=== PATIENT | male | born 1965 | race Caucasian/White ===

== ENCOUNTER 2020-05-22 10:21 | Inpatient (IN) ==
[2020-05-22] MEDS ORDERED: ONDANSETRON INJ 2 MG/ML 2 ML VIAL IV STA (10:46)
[2020-05-22] MEDS ORDERED: MoRPHine SULFATE 10 MG/ML CARP/VIAL IV STA (10:46)
[2020-05-22] MEDS ORDERED: KETOROLAC TROMETHAMINE 15 MG/ML VIAL IV ONE (10:46)
[2020-05-22] MEDS ORDERED: SODIUM CHLORIDE 0.9% 1000ML 2,000 ML IV ONE (10:46)
--- NOTE | 2020-05-22 10:49 | Emergency Department Note ---
Impression & Plan Hydronephrosis of right kidney, Renal colic on right side, Ureterolithiasis ED Provider Note NAME: PELON RUIZ AGE: 54 SEX: M : 1965 ARRIVES VIA: Walk-In INFORMANT: Patient ED PROVIDER(S): Derrick Benito DO CHIEF COMPLAINT: right flank pain HPI: Patient is a 54-year-old male who presents the ER for severe right flank pain. This started about 1/2-hour prior to arrival. Pain states his back and radiates through his flank. Pain is a 10 out of 10. Positions do not change the pain. He took some Advil with no significant improvement. He has a history of 1 previous kidney stone and this was about 10 years ago and this feels extremely similar. Denies any dysuria urgency or frequency prior to this occurring. No trauma. No weakness or numbness in his arms or legs. No fevers. No other exacerbating or remitting factors. ROS: See above HPI for pertinent positives & negatives. A total of 10 systems reviewed and were otherwise negative. PAST MEDICAL HISTORY:See Below PAST SURGICAL HISTORY:See Below FAMILY HISTORY:See Below SOCIAL HISTORY:See Below HOME MEDICATIONS:See Below ALLERGIES:See Below VITALS:See Below PHYSICAL EXAMINATION: GENERAL: Sitting up in bed, alert, significant distress rolling around the bed EYE EXAM: normal conjunctiva. OROPHARYNX: Mask in place NECK: supple, no nuchal rigidity, no adenopathy, non-tender LUNGS: Clear to auscultation. Normal chest wall mechanics HEART: no murmurs, S1 normal and S2 normal ABDOMEN: abdomen soft, non-tender, normo-active bowel sounds, no masses, no rebound or guarding. BACK: Back is symmetrical on inspection and there is no deformity, no midline tenderness, no CVA tenderness. SKIN: no rashes and no bruising UPPER EXTREMITIES: upper extremities are grossly normal. LOWER EXTREMITIES: No pitting edema. Flexion extension of the hips and ankles 4-5 bilaterally NEURO EXAM: Normal sensorium, cranial nerves II-XII grossly intact, normal speech, no gross weakness of arms, no gross weakness of legs. MEDICAL DECISION MAKING: Patient is a 54-year-old male who presents the ER for right flank pain. He notes is severe and sharp and stabbing. Feels like his previous kidney stone. IV was established blood work was obtained. Labs showed no significant leukocytosis or anemia. BMP with slightly elevated chloride at 109. Bilirubin LFTs are unremarkable. Lipase is normal. UA with small amount hematuria. Covid was negative. CT abdomen pelvis shows shows hydronephrosis with a 6 x 7 mm renal stone. He was given 3 separate doses of IV narcotics. He still continued to have fair amount of pain. He was given IV Toradol. He was updated bedside. Discussed with hospitalist for observation secondary to pain control hydronephrosis and renal colic. Triage Nursing notes reviewed. Limited review of prior medical records performed Vital Signs: reviewed and remarkable for HTN Differential diagnosis: Differential diagnoses includes but is not limited to gastritis, peptic ulcer disease, GERD, gallbladder disease, pancreatitis, small bowel obstruction, acute coronary syndrome, pericarditis, ischemic bowel, irritable bowel disease, irritable bowel syndrome, appendicitis, diverticulitis, malignancy, hernia, urinary tract infection, torsion, perforation, trauma, infectious. ER treatment provided: See below Diagnostics interpreted by me: ECG: none Cardiac Monitoring: An order was placed for continuous cardiac monitoring. The monitor shows a rate of 69 with sinus rhythm. Laboratory studies: As stated above and show below. Imaging studies: CT abdomen pelvis shows hydronephrosis with 6 x 7 mm renal stone. Consultation(s): Discussed with Dr. Miles Cary for further evaluation Procedures: none Critical Care: None Past Med/Surg History Medical History History of nephrolithiasis Surgical History History of left inguinal hernia repair Social History Smoking Status: Never smoker Hx Alcohol Use: Yes (1-2 Juan Pablo Avilez) Hx Substance Use: No Feels Safe at Home: Yes Allergies Allergies Allergy/AdvReac Type Severity Reaction Status Date / Time No Known Allergies Allergy Unverified 05/22/20 11:08 Home Meds Home Medications Medication Instructions Recorded Confirmed ibuprofen [Advil] 200 mg PO Q6H PRN 05/22/20 05/22/20 Results & Data (ED) Vital Signs Vital Signs - 24 hr 05/22/20 10:26 05/22/20 10:56 05/22/20 11:17 Temperature 36.1 C L Temperature Source Oral Pulse Rate 64 72 Pulse Rate from SpO2 Sensor 71 Pulse Rhythm Regular Pulse Strength Normal Respiratory Rate 20 26 H Respiratory Effort / Characteristics Non-Labored Respiratory Depth Normal Respiratory Pattern Regular Blood Pressure 152/81 H 161/95 H Blood Pressure Mean 104 117 Blood Pressure Position Sitting Pulse Oximetry 97 100 Oxygen Delivery Method Room Air Room Air Room Air Oxygen Flow Rate Sepsis Recent Fever Within 48 Hours No Sepsis New/Unexplained Change in Mental Status No Sepsis Action Taken by Nursing No Action Required 05/22/20 11:20 05/22/20 11:30 05/22/20 11:40 Temperature Temperature Source Pulse Rate 72 67 69 Pulse Rate from SpO2 Sensor 73 67 68 Pulse Rhythm Pulse Strength Respiratory Rate 26 H 19 23 Respiratory Effort / Characteristics Respiratory Depth Respiratory Pattern Blood Pressure 158/87 H Blood Pressure Mean 110 Blood Pressure Position Pulse Oximetry 100 100 100 Oxygen Delivery Method Room Air Room Air Room Air Oxygen Flow Rate Sepsis Recent Fever Within 48 Hours Sepsis New/Unexplained Change in Mental Status Sepsis Action Taken by Nursing 05/22/20 11:50 05/22/20 12:00 05/22/20 12:21 Temperature Temperature Source Pulse Rate 75 Pulse Rate from SpO2 Sensor 74 66 Pulse Rhythm Pulse Strength Respiratory Rate 23 Respiratory Effort / Characteristics Respiratory Depth Respiratory Pattern Blood Pressure 152/93 H Blood Pressure Mean 112 Blood Pressure Position Pulse Oximetry 100 96 Oxygen Delivery Method Room Air Room Air Room Air Oxygen Flow Rate Sepsis Recent Fever Within 48 Hours Sepsis New/Unexplained Change in Mental Status Sepsis Action Taken by Nursing 05/22/20 12:30 05/22/20 12:35 05/22/20 12:40 Temperature Temperature Source Pulse Rate 63 Pulse Rate from SpO2 Sensor 70 63 Pulse Rhythm Pulse Strength Respiratory Rate Respiratory Effort / Characteristics Respiratory Depth Respiratory Pattern Blood Pressure 141/76 H Blood Pressure Mean 97 Blood Pressure Position Pulse Oximetry 84 L 96 Oxygen Delivery Method Room Air Nasal Cannula Nasal Cannula Oxygen Flow Rate 3 3 Sepsis Recent Fever Within 48 Hours Sepsis New/Unexplained Change in Mental Status Sepsis Action Taken by Nursing Laboratory Data Result diagrams: 05/22/20 10:46 05/22/20 10:46 Lab Results 05/22/20 05/22/20 05/22/20 Range/Units 10:46 10:46 12:22 WBC 10.46 (4.8-10.8) K/uL RBC 5.06 (4.7-6.1) M/uL Hgb 16.4 (14.0-18.0) g/dL Hct 46.3 (42-52) % MCV 91.5 (80-100) fL MCH 32.4 (25-34) pg MCHC 35.4 (32-36) g/dL RDW Std Deviation 40.5 (36.4-46.3) fL RDW Coeff of Geraldine 12.1 (11.5-14.5) % Plt Count 216 (130-400) K/uL MPV 10.0 (7.4-10.4) fL Immature Gran % (Auto) 0.2 % Neut % (Auto) 69.2 % Lymph % (Auto) 20.7 % [place] % (Auto) 9.4 % Eos % (Auto) 0.4 % Baso % (Auto) 0.1 % Neut # (Auto) 7.25 H (1.4-6.5) K/uL Lymph # (Auto) 2.16 (1.2-3.4) K/uL [place] # (Auto) 0.98 H (0.11-0.59) K/uL Eos # (Auto) 0.04 (0-0.5) K/uL Baso # (Auto) 0.01 (0-0.2) K/uL Immature Gran # (Auto) 0.02 (0.00-0.02) K/uL Sodium 140 (136-145) mmol/L Potassium 3.8 (3.5-5.1) mmol/L Chloride 109 H (98-107) mmol/L Carbon Dioxide 23 (21-32) mmol/L Anion Gap 8.0 (3-11) BUN 11 (7-18) mg/dl Creatinine 1.08 (0.6-1.4) mg/dl Est Cr Clr Drug Dosing 84.8 ml/min Est GFR ( Amer) 89.1 Est GFR (Non-Af Amer) 76.9 BUN/Creatinine Ratio 9.9 L (10-20) Glucose 114 H (70-99) mg/dl Calcium 10.6 H (8.5-10.1) mg/dl Total Bilirubin 0.9 (0.2-1) mg/dl AST 11 L (15-37) U/L ALT 26 (12-78) U/L Alkaline Phosphatase 115 (45-117) U/L Total Protein 7.2 (6.4-8.2) gm/dl Albumin 4.4 (3.4-5.0) gm/dl Globulin 2.8 (2.5-4.0) gm/dl Albumin/Globulin Ratio 1.6 (0.9-2) Lipase 97 (73-393) U/L Urine Color Yellow Urine Appearance Clear (Clear) Urine pH 8.5 H (4.5-7.5) Ur Specific [place] 1.011 (1.000-1.030) Urine Protein Negative (Negative) Urine Glucose (UA) Negative (Negative) Urine Ketones 1+ H (Negative) Urine Blood 3+ H (Negative) Urine Nitrite Negative (Negative) Urine Bilirubin Negative (Negative) Urine Urobilinogen Negative (Negative) Ur Leukocyte Esterase Trace H (Negative) Urine WBC (Auto) 1-5 (0-5) /hpf Urine RBC (Auto) 10-30 H (0-4) /hpf U Hyaline Cast (Auto) 1-5 (0-5) /lpf U Epithel Cells (Auto) 5-10 H (0-5) /lpf Urine Bacteria (Auto) Negative (Negative) COVID-19 Eval Order SARS-CoV-2, RNA, NAAT (NEGATIVE) 05/22/20 05/22/20 Range/Units 12:22 12:22 WBC (4.8-10.8) K/uL RBC (4.7-6.1) M/uL Hgb (14.0-18.0) g/dL Hct (42-52) % MCV (80-100) fL MCH (25-34) pg MCHC (32-36) g/dL RDW Std Deviation (36.4-46.3) fL RDW Coeff of Geraldine (11.5-14.5) % Plt Count (130-400) K/uL MPV (7.4-10.4) fL Immature Gran % (Auto) % Neut % (Auto) % Lymph % (Auto) % [place] % (Auto) % Eos % (Auto) % Baso % (Auto) % Neut # (Auto) (1.4-6.5) K/uL Lymph # (Auto) (1.2-3.4) K/uL [place] # (Auto) (0.11-0.59) K/uL Eos # (Auto) (0-0.5) K/uL Baso # (Auto) (0-0.2) K/uL Immature Gran # (Auto) (0.00-0.02) K/uL Sodium (136-145) mmol/L Potassium (3.5-5.1) mmol/L Chloride (98-107) mmol/L Carbon Dioxide (21-32) mmol/L Anion Gap (3-11) BUN (7-18) mg/dl Creatinine (0.6-1.4) mg/dl Est Cr Clr Drug Dosing ml/min Est GFR ( Amer) Est GFR (Non-Af Amer) BUN/Creatinine Ratio (10-20) Glucose (70-99) mg/dl Calcium (8.5-10.1) mg/dl Total Bilirubin (0.2-1) mg/dl AST (15-37) U/L ALT (12-78) U/L Alkaline Phosphatase (45-117) U/L Total Protein (6.4-8.2) gm/dl Albumin (3.4-5.0) gm/dl Globulin (2.5-4.0) gm/dl Albumin/Globulin Ratio (0.9-2) Lipase (73-393) U/L Urine Color Urine Appearance (Clear) Urine pH (4.5-7.5) Ur Specific [place] (1.000-1.030) Urine Protein (Negative) Urine Glucose (UA) (Negative) Urine Ketones (Negative) Urine Blood (Negative) Urine Nitrite (Negative) Urine Bilirubin (Negative) Urine Urobilinogen (Negative) Ur Leukocyte Esterase (Negative) Urine WBC (Auto) (0-5) /hpf Urine RBC (Auto) (0-4) /hpf U Hyaline Cast (Auto) (0-5) /lpf U Epithel Cells (Auto) (0-5) /lpf Urine Bacteria (Auto) (Negative) COVID-19 Eval Order Covid19 [facility] SARS-CoV-2, RNA, NAAT NEGATIVE (NEGATIVE) Administered Medications Discontinued Medications Hydromorphone HCl (Hydromorphone Inj 0.5 Mg/0.5 Ml Syr) 0.5 mg IV NOW STA Stop: 05/22/20 11:41 Last Admin: 05/22/20 11:47 Dose: 0.5 mg Documented by: [id number] Sodium Chloride (Nss 1000ml) 2,000 mls @ 999 mls/hr IV .Q2H1M ONE Stop: 05/22/20 12:46 Last Infusion: 05/22/20 12:54 Dose: 0 mls/hr Documented by: [id number] Admin: 05/22/20 10:52 Dose: 999 mls/hr Documented by: [id number] Ketorolac Tromethamine (Ketorolac Tromethamine 15 Mg/Ml Vial) 15 mg IV NOW ONE Stop: 05/22/20 10:47 Last Admin: 05/22/20 10:53 Dose: 15 mg Documented by: [id number] Morphine Sulfate (Morphine Sulfate 10 Mg/Ml Carp/Vial) 6 mg IV NOW STA Stop: 05/22/20 10:47 Last Admin: 05/22/20 10:53 Dose: 6 mg Documented by: [id number] Morphine Sulfate (Morphine Sulfate 4 Mg/Ml 1 Ml Carp\Vial) 4 mg IV NOW STA Stop: 05/22/20 11:20 Last Admin: 05/22/20 11:22 Dose: 4 mg Documented by: [id number] Ondansetron HCl (Ondansetron Inj 2 Mg/Ml 2 Ml Vial) 4 mg IV NOW STA Stop: 05/22/20 10:47 Last Admin: 05/22/20 10:53 Dose: 4 mg Documented by: [id number] Tamsulosin HCl (Tamsulosin Hcl 0.4 Mg Cap) 0.4 mg PO NOW STA Stop: 05/22/20 12:34 Last Admin: 05/22/20 12:58 Dose: 0.4 mg Documented by: [id number] Discharge Plan Visit Data Chief Complaint: Kidney Stone Stated Complaint: KIDNEY STONE ED Provider: Derrick Benito Discharge Problem: Hydronephrosis of right kidney, Renal colic on right side, Ureterolithiasis Discharge Instructions Interventions: ED Discharge Assessment Last Done: 05/22/20 14:54
[2020-05-22 11:03] LABS: Basophils # (auto) 0.01 K/uL (0-0.2); Basophils % (auto) 0.1 %; Eosinophils # (auto) 0.04 K/uL (0-0.5); Eosinophils % (auto) 0.4 %; Hematocrit (blood only) 46.3 % (42-52); Hemoglobin 16.4 g/dL (14.0-18.0); Immature Granulocytes # (auto) 0.02 K/uL (0.00-0.02); Immature Granulocytes % (auto) 0.2 %; Lymphocytes # (auto) 2.16 K/uL (1.2-3.4); Lymphocytes % (auto) 20.7 %; Mean Corpuscular Hemoglobin 32.4 pg (25-34); Mean Corpuscular Hgb Conc 35.4 g/dL (32-36); Mean Corpuscular Volume 91.5 fL (80-100); Monocytes # (auto) 0.98 K/uL (0.11-0.59); Monocytes % (auto) 9.4 %; Neutrophils # (auto) 7.25 K/uL (1.4-6.5); Neutrophils % (auto) 69.2 %; Platelet Count 216 K/uL (130-400); RDW Coefficient of Variation 12.1 % (11.5-14.5); RDW Standard Deviation 40.5 fL (36.4-46.3); Red Blood Count 5.06 M/uL (4.7-6.1); White Blood Count 10.46 K/uL (4.8-10.8)
[2020-05-22] MEDS ORDERED: MoRPHine SULFATE 4 MG/ML 1 ML CARP\\VIAL IV STA (11:19)
--- NOTE | 2020-05-22 11:22 | CT Scan Report ---
ABDOMEN AND PELVIS CT WITHOUT CONTRAST CT DOSE: 578.45 mGy.cm HISTORY: Acute right-sided flank pain in a patient with history of kidney stones r flank pain TECHNIQUE: Multiaxial CT images of the abdomen and pelvis were performed without contrast. A dose lo wering technique was utilized adhering to the principles of ALARA. COMPARISON STUDY: CT abdomen 02/06/2010 FINDINGS: Clear lung bases. No pneumatosis or pneumoperitoneum. Imaged inferior cardiac chambers are unremarkable. The unenhanced spleen, pancreas, adrenal glands, gallbladder and liver appear unremarka ble. There are approximately 7 nonobstructing calculi noted within the left kidney measuring up to 5 mm. M ild right-sided hydroureteronephrosis secondary to an obstructing 6 x 4 x 7 mm calculus of the right ureter at the level of the mid L3 vertebral body. Reactive perinephric and periureteral stranding. 1. 6 cm cyst of the interpolar right kidney. Calcifications are noted within the central prostate. Mild urinary bladder wall thickening. Aorta and IVC are unremarkable. There is no adenopathy. No bowel obstruction or bowel wall thickening. Terminal ileum and appendix are unremarkable. No ascit es or mesenteric inflammation. Small fat filled supraumbilical hernia, diastases 1.8 cm. No acute fra cture. Degenerative changes of the spine, pelvis and hips. Probable bone island of the right iliac wi ng is unchanged. 1.9 x 1.4 cm sclerotic lesion of the S1 vertebral body has increased in size from 20 10 however is suggestive of benign etiology. IMPRESSION: 1. Mild right-sided hydroureteronephrosis secondary to an obstructing 6 x 4 x 7 mm calculus of the ri ght ureter at the level of L3. 2. Nonobstructing left nephrolithiasis. 3. No bowel obstruction or bowel wall thickening. Normal appendix. 4. Small fat filled supraumbilical abdominal wall hernia. ACT 112: Negative or not required by law. The above report was generated using voice recognition software. It may contain grammatical, syntax o r spelling errors. Electronically signed by: Unruly Corado M.D. 05/22/2020 11:21 AM
[2020-05-22 11:24] LABS: Albumin Level 4.4 gm/dl (3.4-5.0); BUN Creatinine Ratio 9.9 (10-20); Calcium 10.6 mg/dl (8.5-10.1); Creatinine Clr Calc Pharmacy 84.8 ml/min; Est GFR (African American) 89.1; Est GFR (Non-African American) 76.9; Potassium 3.8 mmol/L (3.5-5.1)
[2020-05-22 11:27] LABS: Albumin Globulin Ratio 1.6 (0.9-2); Bilirubin,Total 0.9 mg/dl (0.2-1); Globulin 2.8 gm/dl (2.5-4.0); Total Protein 7.2 gm/dl (6.4-8.2)
[2020-05-22] MEDS ORDERED: HYDROmorphone INJ 0.5 MG/0.5 ML SYR IV STA (11:40)
[2020-05-22] MEDS ORDERED: TAMSULOSIN HCL 0.4 MG CAP PO STA (12:33)
[2020-05-22 12:34] LABS: Appearance Urine Clear (Clear); Bacteria Urine Automated Negative (Negative); Bilirubin Urine Negative (Negative); Blood Urine 3+ (Negative); Color Urine Yellow; Glucose Urine UA Negative (Negative); Ketones Urine 1+ (Negative); Leukocyte Esterase Urine Trace (Negative); Nitrite Urine Negative (Negative); Protein Urine Negative (Negative); Specific Gravity Urine 1.011 (1.000-1.030); Urobilinogen Urine Negative (Negative); pH Urine 8.5 (4.5-7.5)
--- NOTE | 2020-05-22 12:52 | History & Physical Report ---
Date of Service May 22, 2020 Assessment & Plan (1) Ureterolithiasis: Tamsulosin 0.4 mg p.o. IV fluids Strain all urine with stone analysis on filtrate X-ray KUB in a.m. No WBC, UA negative for infection and no fever/chills to suggest need for antibiotics at the current time. Consult urology (2) Renal colic on right side: Acetaminophen, Toradol, Dilaudid for pain relief Ondansetron for nausea (3) Hydronephrosis of right kidney: (4) Hypoxia: Secondary to opiates in ER. Wean O2 as able. Aim O2 sats > 94%. Admission and Anticipated Discharge Date Admission Date: May 22, 2020 History of Present Illness Chief Complaint: Right flank pain Primary Care Provider: Nader Blue Benjamin Warner is a 54 year old male who presents to the ER with right sided flank pain that started this morning. He reports having occasional intermittent pains in the same area over the several months approximately once a month but more mild in nature and resolved within minutes. However this morning he had severe 50/10 right flank pain radiating to his right groin and testicle which was not relieved with Advil. No dysuria, fever or chills. He notes one previous stone on the left side in the past which did not require surgical intervention. In the ER CT scan was concerning for an obstructing 7 mm stone in the right mid ureter with subsequent mild right-sided hydronephrosis. Current pain 6-7/10 when seen after pain medication given in the emergency room. He was referred to medicine for admission ongoing management of right ureterolithiasis. Allergies Allergy/AdvReac Type Severity Reaction Status Date / Time No Known Allergies Allergy Unverified 05/22/20 11:08 Home Medications Medication Instructions Recorded Confirmed Type ibuprofen [Advil] 200 mg PO Q6H PRN 05/22/20 05/22/20 History Past Med/Surg History Medical History History of nephrolithiasis Surgical History History of left inguinal hernia repair Social History Smoking Status: Never smoker Hx Alcohol Use: No Hx Substance Use: No Preferred Language: Turkish Communication Ability: Effective Beliefs That Will Affect Care: None Current Living Situation: Spouse Other Information That Helps Us Care for You: No Feels Safe at Home: Yes Safety Concerns: Feels Safe At This Time Assistive Devices: None Review of Systems Review of Systems: All systems reviewed & are unremarkable except as noted in HPI & below Physical Exam Constitutional: well developed and well nourished; no acute distress Eyes: + anicteric sclerae; normal pupil size Respiratory: normal respiratory effort, lungs clear to auscultation Cardiovascular: RRR, no murmur, no edema Gastrointestinal (Abdomen): normal bowel sounds, soft, nontender, no hepatosplenomegaly Musculoskeletal: no cyanosis or clubbing, extremities motor strength 5/5 Skin: no rashes, warm and dry Neurologic: moves all extremities and awake; not confused Psychiatric: A+Ox3, euthymic affect Genitourinary: + CVA tenderness (Right) Results & Data Results & Data ([facility]) Vital Signs (Past 12 Hours) Vital Signs Temp Pulse Resp BP Pulse Ox 05/22/20 12:30 141/76 H 84 L 05/22/20 12:21 96 05/22/20 12:00 152/93 H 05/22/20 11:50 75 23 100 05/22/20 11:40 69 23 100 05/22/20 11:30 67 19 158/87 H 100 05/22/20 11:20 72 26 H 100 05/22/20 11:17 72 26 H 161/95 H 100 05/22/20 10:26 36.1 C L 64 20 152/81 H 97 Diagnostic Findings ABDOMEN AND PELVIS CT WITHOUT CONTRAST IMPRESSION: 1. Mild right-sided hydroureteronephrosis secondary to an obstructing 6 x 4 x 7 mm calculus of the right ureter at the level of L3. 2. Nonobstructing left nephrolithiasis. 3. No bowel obstruction or bowel wall thickening. Normal appendix. 4. Small fat filled supraumbilical abdominal wall hernia. Medications Administered ER medications given: NSS 2 L bolus Toradol 15 mg IV Morphine 6+4 mg IV Ondansetron 4 mg IV Dilaudid 0.5 mg IV Code Status & VTE Plan Code Status Full VTE Prophylaxis Plan VTE Prophylaxis will be ordered: No PG Care Time/CCT Total # of Minutes Spent Total Time Spent with Patient: Total time spent is greater than 50% in coordination of care (as documented) at patient's floor/unit and/or counseling patient: Coding Level of Care Code 69452 Initial Inpt Care Lvl 2 Diagnoses Ureterolithiasis N20.1 Renal colic on right side N23 Hydronephrosis of right kidney N13.30 Hypoxia R09.02
[2020-05-22] MEDS ORDERED: ACETAMINOPHEN 325 MG TAB PO PRN (15:53)
[2020-05-22] MEDS: LACTATED RINGER'S 1,000 ML IV SCH ×2 (15:55→23:33)
[2020-05-22] MEDS: HYDROmorphone INJ 0.5 MG/0.5 ML SYR IV PRN ×3 (16:55→21:32)
[2020-05-22] MEDS: KETOROLAC TROMETHAMINE 15 MG/ML VIAL IV PRN (19:31)
[2020-05-22] MEDS ORDERED: INFLUENZA ADMINISTRATION CHARGE ONE (20:48)
[2020-05-22] MEDS ORDERED: INFLUENZA VIRUS QUAD VACCINE 0.5 ML SYR IM ONE (20:48)
[2020-05-22] MEDS ORDERED: ONDANSETRON INJ 2 MG/ML 2 ML VIAL IV PRN (21:25)
--- NOTE | 2020-05-22 21:25 | Urology Consultation ---
Date of Consultation May 22, 2020 Assessment & Plan (1) Ureterolithiasis: Due to the patient's poor pain control and hydronephrosis he has been admitted to the hospital by the medical service. The following recommendations will be made: Continue Flomax as ordered by the medical service for expulsive therapy Hydration with IV fluids Provide analgesics Provide antiemetics Due to the size of the kidney stone and the noted hydronephrosis the patient may require cystoscopic intervention. We will therefore make the patient n.p.o. after midnight and add him to the operating room schedule for possible cystoscopy and right ureteral stent placement. Continue to strain urine and save any kidney stones that are passed for appropriate analysis As the patient has no leukocytosis and is afebrile we will not order antibiotics at this time. Appropriate antibiotics perioperatively will be ordered. Remainder of plan as directed by the primary service History of Present Illness Reason for Consultation: 1. Nephrolithiasis 2. Hydronephrosis Attending Physician: Miles Cary MD History of Present Illness This is a 54-year-old male with a remote history of nephrolithiasis. Patient notes that approximately 8 to 10 years ago he did suffer a left-sided kidney stone. He says he did not require any procedural intervention and the stone passed on its own. He says at that time he did undergo CT scanning of his abdomen at which time a right-sided kidney stone was identified. He notes over the past decade the kidney stone has given him trouble from time to times with intermittent abdominal pain he has never required any intervention or hospitalization. Patient was in his usual state of health until earlier this morning he started having some right-sided flank pain. As he has had this in the past he thought it would get better however the pain progressed and became unbearable. He notes the pain is located in the right flank and radiates to his right groin and right testicular area. He has not had any fevers, shakes, chills. He has had nausea without vomiting. He does not know any provocative factors but does note that the pain is alleviated somewhat with pain medicines that have been administered. He notes for the most part he has been urinating without difficulty but did maya ve one episode where he was unable to urinate. He specifically denies any hematuria. In the emergency department he did undergo labs were CBC revealed his hemoglobin, hematocrit, white blood cell count and platelet count were all noted to be within normal range. Chemistry profile showed that his sodium, potassium, BUN, and creatinine were all noted to be within normal range. Urinalysis revealed 3+ blood in the urine along with 10-30 red blood cells per high-power field. CT scan of the abdomen revealed an obstructing right-sided kidney stone with right-sided hydronephrosis. The kidney stone measured 6 x 4 x 7 mm. Patient notes that when he is feeling well he is quite active. He denies any significant cardiac history and does not have a significant smoking history. He notes that he can easily ambulate 1 mile and negotiate several flights of steps without chest pain or shortness of breath. At the time of my interview the patient was resting in bed he was in no distress but was having some discomfort in the right flank. Allergies Allergy/AdvReac Type Severity Reaction Status Date / Time No Known Allergies Allergy Unverified 05/22/20 11:08 Home Medications Medication Instructions Recorded Confirmed Type ibuprofen [Advil] 200 mg PO Q6H PRN 05/22/20 05/22/20 History Patient History Medical History History of nephrolithiasis Surgical History History of left inguinal hernia repair Social History Smoking Status: Never smoker Hx Alcohol Use: No Hx Substance Use: No Preferred Language: Greenlandic Communication Ability: Effective Beliefs That Will Affect Care: None Current Living Situation: Spouse Other Information That Helps Us Care for You: No Feels Safe at Home: Yes Safety Concerns: Feels Safe At This Time Assistive Devices: None Review of Systems Constitutional: no fever and no chills Eyes: no diplopia Ear, Nose, Mouth, Throat: no ear pain Respiratory: no cough and no dyspnea Cardiovascular: no chest pain Gastrointestinal: + abdominal pain (Right lower abdomen radiating from the right flank) and + nausea; no vomiting Genitourinary: + flank pain (Right sided); no dysuria and no hematuria Musculoskeletal: + back pain (Right flank) Integumentary: no rash Neurologic: no localized weakness Physical Exam Constitutional: well developed and well nourished; no acute distress Eyes: no conjunctival abnormality ENMT: Ears: no hearing impairment Neck: trachea midline Respiratory: normal respiratory effort, lungs clear to auscultation Cardiovascular: Rate/Rhythm: regular rate and regular rhythm Gastrointestinal (Abdomen): Abdomen is soft and nondistended. Bowel sounds are present and normal active. There is minimal to no tenderness with palpation of his abdomen. There is no rebound tenderness or guarding. CVA tenderness is present with percussion on the right side. There is no CVA tenderness with percussion of the left. Musculoskeletal: No calf tenderness Skin: no rashes, warm and dry normal turgor Neurologic: moves all extremities Psychiatric: A+Ox3, euthymic affect Results & Data ([facility]) Vital Signs (Past 12 Hours) Vital Signs Temp Pulse Pulse Resp BP BP Pulse Ox 05/22/20 15:00 36.4 C L 64 20 162/87 H 97 05/22/20 14:50 71 05/22/20 14:40 57 L 20 95 05/22/20 14:30 59 L 93 05/22/20 14:20 55 L 98 05/22/20 14:10 56 L 10 L 98 05/22/20 14:00 56 L 98 05/22/20 13:50 59 L 15 98 05/22/20 13:40 59 L 14 98 05/22/20 13:30 61 14 98 05/22/20 13:20 67 20 97 05/22/20 13:10 98 05/22/20 13:00 65 163/98 H 98 05/22/20 12:50 64 15 99 05/22/20 12:40 63 96 05/22/20 12:30 141/76 H 84 L 05/22/20 12:21 96 05/22/20 12:00 152/93 H 05/22/20 11:50 75 23 100 05/22/20 11:40 69 23 100 05/22/20 11:30 67 19 158/87 H 100 05/22/20 11:20 72 26 H 100 05/22/20 11:17 72 26 H 161/95 H 100 05/22/20 10:26 36.1 C L 64 20 152/81 H 97 PG Care Time/CCT Total # of Minutes Spent Total Time Spent with Patient: Total time spent is greater than 50% in coordination of care (as documented) at patient's floor/unit and/or counseling patient: Coding Level of Care Code 57166 Inpt Consult Level 5 Diagnoses Ureterolithiasis N20.1
[2020-05-23] MEDS: HYDROmorphone INJ 0.5 MG/0.5 ML SYR IV PRN ×2 (00:14→07:33)
[2020-05-23] MEDS: LACTATED RINGER'S 1,000 ML IV SCH ×2 (05:54→16:52)
[2020-05-23] MEDS: KETOROLAC TROMETHAMINE 15 MG/ML VIAL IV PRN (05:54)
--- NOTE | 2020-05-23 07:42 | Urology Progress Note ---
Date of Service May 23, 2020 Assessment & Plan (1) Ureterolithiasis: R prox ureteral calc - still symptomatic - hemodynamically stable - tentatively on the schedule for possible stent later today Admission and Anticipated Discharge Date Admission Date: May 22, 2020 Subjective stable overnight, but no stone passage continues to have right flank pain discussed options he is interested in a stent if possible Physical Exam Constitutional: well developed and well nourished Neck: neck nontender Respiratory: normal respiratory effort; no respiratory distress and does not use accessory muscles Cardiovascular: Rate/Rhythm: regular rate Vessels: radial pulses present Extremities: no edema Gastrointestinal (Abdomen): Inspection/Auscultation: abdomen normal to inspection Percussion/Palpation: abdomen soft; abdomen nontender and no guarding Musculoskeletal: Head/Neck/Chest: normocephalic and head atraumatic Extremities: extremities normal to inspection Skin: no rashes and no lesions Trauma: no evidence of skin trauma Neurologic: awake; not obtunded Speech / Cognition: normal speech Motor/Sensory: no tremor Psychiatric: Orientation: alert and oriented x 3 Genitourinary: no CVA tenderness Lymphatic: no lymphadenopathy Results & Data ([facility]) Vital Signs (Past 12 Hours) Vital Signs Temp Pulse Resp BP Pulse Ox 05/22/20 23:29 37.2 C 58 L 18 122/72 96 PG Care Time/CCT Total # of Minutes Spent Total Time Spent with Patient: Total time spent is greater than 50% in coordination of care (as documented) at patient's floor/unit and/or counseling patient: Coding Level of Care Code 47106 Subseq Hosp Care Lvl 2 Diagnoses Ureterolithiasis N20.1
--- NOTE | 2020-05-23 08:01 | Anesthesiology Consultation ---
Date of Service May 23, 2020 Assessment & Plan (1) Encounter for pre-operative examination: History Surgery Operation Date: 05/23/20 09:20 Proposed Procedures p Cystoscopy Right Ureteral Stent Insertion - Rajesh Carlson MD Height/Weight Height: 6 ft Weight: 91 kg Allergies Allergy/AdvReac Type Severity Reaction Status Date / Time No Known Allergies Allergy Unverified 05/22/20 11:08 Medications Home Medications Medication Instructions Recorded Confirmed Last Taken ibuprofen [Advil] 200 mg PO Q6H PRN 05/22/20 05/22/20 05/22/20 10:00 400 mg Active Medications Generic Name Dose Route Start Last Admin Trade Name Freq PRN Reason Stop Dose Admin Acetaminophen 650 mg 05/22/20 15:53 05/22/20 21:31 Acetaminophen 325 Mg Tab PO 06/21/20 15:52 650 mg Q4H PRN Administration pain/fever Hydromorphone HCl 0.5 mg 05/22/20 15:53 05/23/20 07:33 Hydromorphone Inj 0.5 Mg/0.5 Ml Syr IV 06/05/20 15:52 0.5 mg Q2H PRN Administration Pain Lactated Ringer's 1,000 mls @ 150 mls/hr 05/22/20 15:53 05/23/20 05:54 Lr IV 06/21/20 15:52 150 mls/hr .Q6H40M BRIAN Administration Ketorolac Tromethamine 15 mg 05/22/20 15:53 05/23/20 05:54 Ketorolac Tromethamine 15 Mg/Ml Vial IV 05/27/20 15:52 15 mg Q6H PRN Administration Pain NPO Date Last Intake of Fluids: 05/22/20 Time Last Intake of Fluids: 23:59 Date Last Intake of Solids: 05/22/20 Time Last Intake of Solids: 23:59 Past Medical History Medical History History of nephrolithiasis Past Surgical History Surgical History History of left inguinal hernia repair Social History Smoking Status: Never smoker Hx Alcohol Use: No Hx Substance Use: No Physical Exam Vital Signs Last Vital Signs Temp 36.9 C 05/23/20 07:44 Pulse 52 L 05/23/20 07:44 Resp 16 05/23/20 07:44 BP 136/79 05/23/20 07:44 Pulse Ox 97 05/23/20 07:44 Testing Laboratory Results 05/22/20 10:46 05/22/20 10:46 Urine Color Yellow 05/22/20 12:22 Urine Appearance Clear (Clear) 05/22/20 12:22 Urine pH 8.5 (4.5-7.5) H 05/22/20 12:22 Ur Specific [place] 1.011 (1.000-1.030) 05/22/20 12:22 Urine Protein Negative (Negative) 05/22/20 12: Urine Glucose (UA) Negative (Negative) 05/22/20 12: Urine Ketones 1+ (Negative) H 05/22/20 12:22 Urine Nitrite Negative (Negative) 05/22/20 12:22 Ur Leukocyte Esterase Trace (Negative) H 05/22/20 12:22 Urine WBC (Auto) 1-5 /hpf (0-5) 05/22/20 12:22 Urine RBC (Auto) 10-30 /hpf (0-4) H 05/22/20 12:22 U Hyaline Cast (Auto) 1-5 /lpf (0-5) 05/22/20 12:22 U Epithel Cells (Auto) 5-10 /lpf (0-5) H 05/22/20 12:22 Urine Bacteria (Auto) Negative (Negative) 05/22/20 12:22
[2020-05-23] MEDS ORDERED: fentaNYL citrate 100 MCG/2 ML VIAL IV PRN (08:02)
[2020-05-23] MEDS ORDERED: ePHEDrine sulfate 50 MG/ML AMP IV PRN (08:02)
[2020-05-23] MEDS ORDERED: HYDROmorphone INJ 1 MG/ML SYRINGE IV PRN (08:02)
[2020-05-23] MEDS ORDERED: ONDANSETRON INJ 2 MG/ML 2 ML VIAL IV PRN (08:02)
[2020-05-23] MEDS ORDERED: ATROPINE SULFATE 0.1 MG/ML 10ML SYR IV PRN (08:02)
--- NOTE | 2020-05-23 08:12 | XRay Report ---
KUB HISTORY: right ureteral stone COMPARISON: Abdomen and pelvis CT 05/22/2020. FINDINGS: The bowel gas pattern is unremarkable. There are no dilated loops of small bowel to suggest an obstruction. No change in position of the 6 mm stone within the proximal right ureter adjacent t o the right L3 transverse process. Calcifications in the deep pelvis are consistent with phleboliths. Multiple punctate left renal calculi are noted. The right renal shadow is mostly obscured by overlyi ng bowel gas. No pneumoperitoneum or pneumatosis. IMPRESSION: 1. No change position of the proximal right 6 mm ureteral stone. 2. Stable left-sided nephrolithiasis. ACT 112: Negative or not required by law. Electronically signed by: Tushar Rebolledo M.D. 05/23/2020 8:11 AM
[2020-05-23] MEDS ORDERED: TAMSULOSIN HCL 0.4 MG CAP PO SCH (09:00)
[2020-05-23] MEDS ORDERED: LIDOCAINE HCL 2% 2 ML VIAL/AMP(20MG/ML) INFIL ONE (09:11)
[2020-05-23] MEDS ORDERED: fentaNYL citrate 100 MCG/2 ML VIAL ONE (09:11)
[2020-05-23] MEDS ORDERED: MIDAZOLAM HCL 1 MG/ML 2ML VIAL ONE (09:11)
[2020-05-23] MEDS ORDERED: PROPOFOL IV EMULSION 10 MG/ML 20 ML VIAL IV ONE (09:11)
[2020-05-23] MEDS ORDERED: ONDANSETRON INJ 2 MG/ML 2 ML VIAL ONE (09:11)
[2020-05-23] MEDS ORDERED: CIPROFLOXACIN 400MG / 200ML D5W IV ONE (09:12)
--- NOTE | 2020-05-23 09:12 | History & Physical Bridge Note ---
Date of Service May 23, 2020 History & Physical Bridge Note I have examined the patient, reviewed the History & Physical and in the interval since the performance of the History & Physical I have noted the following changes of clinical significance: no changes noted
[2020-05-23] MEDS ORDERED: CIPROFLOXACIN / D5W 400 MG/200 ML BAG IV STA (09:19)
[2020-05-23] MEDS ORDERED: DIATRIZOATE MEGLUMINE 30% 100ML VIAL INSTIL ONE (09:48)
--- NOTE | 2020-05-23 10:26 | Fluoroscopy Report ---
FL retrograde includes kub CLINICAL HISTORY: CYSTO/RT STENT. Right ureteral stent. COMPARISON STUDY: None. FLUOROSCOPY TIME: 33 seconds. FINDINGS: 9 fluoroscopic spot images of the abdomen and pelvis were submitted. There is retrograde op acification of the right renal collecting system followed by placement of a right ureteral stent. Onl y the proximal portion of the stent is identified and appears to be in good position. Proximal right ureteral stone is noted. IMPRESSION: Fluoroscopy provided for right ureteral stent placement. ACT 112: Negative or not required by law. Electronically signed by: Tushar Rebolledo M.D. 05/23/2020 10:24 AM
--- NOTE | 2020-05-23 10:35 | Post Operative Brief Note ---
PG Immediate Post Op with CF Date of Surgery May 23, 2020 Pre & Post Diagnosis Operation Date: 05/23/20 09:20 Pre-Op Diagnosis: OBSTRUCTING URETEROLITHIASIS Post-Op Diagnosis: OBSTRUCTING URETEROLITHIASIS I identified the patient and participated in the time-out.: Yes Procedure Operation Date: 05/23/20 09:20 Actual Procedures p Cystoscopy, Right Ureteral Stent Insertion(Right) - Rajesh Carlson MD Surgeon Rajesh Carlson MD Finishing Room Operator none Estimated Blood Loss 1 Findings Consistent with Post-Op Diagnosis
--- NOTE | 2020-05-23 10:43 | Anesthesiology Progress Note ---
Date of Service May 23, 2020 Anesthesia Post Procedure Vital Signs Vital Signs: Temp Pulse Pulse Pulse Resp BP BP 05/23/20 10:40 36.5 C 53 L 14 124/69 05/23/20 10:30 53 L 19 115/77 05/23/20 10:20 60 18 112/69 05/23/20 10:10 59 L 15 123/58 L 05/23/20 10:01 36.2 C L 56 L 19 122/70 05/23/20 08:25 36.7 C 48 L 18 152/80 H 05/23/20 07:44 36.9 C 52 L 16 136/79 05/22/20 23:29 37.2 C 58 L 18 122/72 05/22/20 15:00 36.4 C L 64 20 162/87 H 05/22/20 14:50 71 05/22/20 14:40 57 L 20 05/22/20 14:30 59 L 05/22/20 14:20 55 L 05/22/20 14:10 56 L 10 L 05/22/20 14:00 56 L 05/22/20 13:50 59 L 15 05/22/20 13:40 59 L 14 05/22/20 13:30 61 14 05/22/20 13:20 67 20 05/22/20 13:10 05/22/20 13:00 65 163/98 H 05/22/20 12:50 64 15 05/22/20 12:40 63 05/22/20 12:30 141/76 H 05/22/20 12:21 05/22/20 12:00 152/93 H 05/22/20 11:50 75 23 05/22/20 11:40 69 23 05/22/20 11:30 67 19 158/87 H 05/22/20 11:20 72 26 H 05/22/20 11:17 72 26 H 161/95 H Pulse Ox 05/23/20 10:40 92 05/23/20 10:30 95 05/23/20 10:20 93 05/23/20 10:10 99 05/23/20 10:01 97 05/23/20 08:25 96 05/23/20 07:44 97 05/22/20 23:29 96 05/22/20 15:00 97 05/22/20 14:50 05/22/20 14:40 95 05/22/20 14:30 93 05/22/20 14:20 98 05/22/20 14:10 98 05/22/20 14:00 98 05/22/20 13:50 98 05/22/20 13:40 98 05/22/20 13:30 98 05/22/20 13:20 97 05/22/20 13:10 98 05/22/20 13:00 98 05/22/20 12:50 99 05/22/20 12:40 96 05/22/20 12:30 84 L 05/22/20 12:21 96 05/22/20 12:00 05/22/20 11:50 100 05/22/20 11:40 100 05/22/20 11:30 100 05/22/20 11:20 100 05/22/20 11:17 100 Pain Intensity Back: Pain Intensity: 0 Lower Back: Pain Intensity: 2 Transfer of Care Handoff Completed per policy Notes Mental Status: alert / awake / arousable and participated in evaluation Patient Amnestic to Procedure: Yes Nausea / Vomiting: adequately controlled Pain: adequately controlled Airway Patency, RR, SpO2: stable & adequate BP & HR: stable & adequate Hydration State: stable & adequate Anesthetic Complications: no major complications apparent and Pt Satisfied with anesthetic care
--- NOTE | 2020-05-23 10:59 | Operative Report (OR) ---
DATE OF OPERATION: 05/23/2020 PREOPERATIVE DIAGNOSIS: Proximal right ureteral stone. POSTOPERATIVE DIAGNOSIS: Proximal right ureteral stone. SURGEON: Rajesh Carlson MD. ANESTHESIA: General. INDICATIONS: The patient is a 54-year-old male, previous history of significant pain from a proximal stone. We discussed his options and because of his severe pain, we elected to place a stent in preparation for possible subsequent ureteroscopy and/or ESWL. DESCRIPTION OF THE PROCEDURE: The patient was taken to the operating room where general anesthesia was administered. He was placed in dorsal lithotomy position and prepped and draped in the usual sterile fashion. A 21-Lao cystoscope was passed per urethra. There were no strictures seen. Bladder was free of tumor. The right ureteral orifice was identified. I was able to cannulate that with a dual flex guidewire, but it was very difficult initially to get the wire by the stone, but eventually I did. I did attempt to pass a 5-Lao open-ended catheter and it took quite a bit of pressure to have this passed beyond the stone as the stone appeared to be impacted, and once this was beyond the stone, I was able to decompress the kidney and then placed some contrast for retrograde. Subsequently, replaced the guidewire and removed the 5-Lao open-ended stent and placed a 4.8-Lao 26 cm stent with good position in the renal pelvis and a good curl in the bladder. Bladder was emptied. The patient was transferred to the recovery room in stable condition. I attest to the content of the Intraoperative Record and any orders documented therein. Any exception s are noted below.
[2020-05-23] MEDS ORDERED: CIPROFLOXACIN / D5W 400 MG/200 ML BAG IV SCH (12:00)
[2020-05-23] MEDS ORDERED: KETOROLAC TROMETHAMINE 15 MG/ML VIAL IV ONE (15:09)
[2020-05-23] MEDS ORDERED: traMADol HCL 50 MG TABLET PO PRN (16:18)
[2020-05-23] MEDS ORDERED: PHENAZOPYRIDINE HCL 200 MG TAB PO PRN (16:18)
[2020-05-23] MEDS ORDERED: PHENAZOPYRIDINE HCL 200 MG TAB PO ONE (16:45)
--- NOTE | 2020-05-30 10:06 | Discharge Summary ---
Date of Service May 23, 2020 Admission HPI Per Admitting Provider Benjamin Warner is a 54 year old male who presents to the ER with right sided flank pain that started this morning. He reports having occasional intermittent pains in the same area over the several months approximately once a month but more mild in nature and resolved within minutes. However this morning he had severe 50/10 right flank pain radiating to his right groin and testicle which was not relieved with Advil. No dysuria, fever or chills. He notes one previous stone on the left side in the past which did not require surgical intervention. In the ER CT scan was concerning for an obstructing 7 mm stone in the right mid ureter with subsequent mild right-sided hydronephrosis. Current pain 6-7/10 when seen after pain medication given in the emergency room. He was referred to medicine for admission ongoing management of right ureterolithiasis. Principal Diagnosis ureterolithiasis Discharge Exam Constitutional: well developed and well nourished; no acute distress Eyes: + anicteric sclerae; normal pupil size Respiratory: normal respiratory effort, lungs clear to auscultation Cardiovascular: RRR, no murmur, no edema Gastrointestinal (Abdomen): normal bowel sounds, soft, nontender, no hepatosplenomegaly Musculoskeletal: no cyanosis or clubbing, extremities motor strength 5/5 Skin: no rashes, warm and dry Neurologic: moves all extremities and awake; not confused Psychiatric: A+Ox3, euthymic affect Genitourinary: no CVA tenderness Discharge Data Allergies Allergy/AdvReac Type Severity Reaction Status Date / Time No Known Allergies Allergy Verified 05/29/20 08:49 Consultations 05/22/20 12:03 ED Decision to Admit Stat 05/22/20 15:53 Consult Urology Routine 05/23/20 19:13 Consult Patient Services Routine Procedures Performed Operation Date: 05/23/20 09:20 Actual Procedures p Cystoscopy, Right Ureteral Stent Insertion(Right) - Rajesh Carlson MD Ordered Studies 05/22/20 10:46 CT abd pelvis wo con Stat 05/23/20 07:15 [place] retrograde includes kub Routine Hospital Course (1) Ureterolithiasis: s/p ureteral stent on right. Tamsulosin 0.4 mg p.o. Patient asked to be discharged as his pain was under control. Gave patient discharge instructions. Will followup with urology as an outpatient. Ordered tramadol for severe pain (2) Renal colic on right side: Acetaminophen, Toradol, Dilaudid for pain relief Ondansetron (3) Hydronephrosis of right kidney: (4) Hypoxia: Secondary to opiates in ER. Wean O2 as able. Aim O2 sats > 94%. Total Time Total Time Spent Total Time Spent (In Minutes): 32 Total Time Includes: Examination of the Patient, Discharge Planning and Medication Reconciliation Discharge Plan Discharge Items Patient Disposition: Home - Self-Care Reason For Visit: OBSTRUCTING URETEROLITHIASIS Discharge Diagnosis: Obstructing Uretrolithiasis Activity: Resume your previous activity Non-emergency contact: Primary Care Provider Call non-emergency contact if: you have any medication questions Follow-up/Referrals: Nader Blue [Primary Care Provider] - Diet: Regular Addtl Attending Provider Instructions: Recommend to continue Pyridium for 2 days. Tramadol for severe pain. Tamsulosin to help dilate your ureter. Pending Studies at Discharge: No Stand-Alone Forms: [facility] [email or web address], Opioid Pain Management, Smoking Cessation Medications and DC Order Prescriptions: New acetaminophen 325 mg Tablet 650 mg PO Q6H PRN (Reason: pain (scale score 1-3)) Qty: 15 RF: 0 tamsulosin 0.4 mg Capsule 0.4 mg PO QAM Qty: 30 RF: 0 phenazopyridine [Pyridium] 200 mg Tablet 200 mg PO TID Qty: 6 RF: 0 tramadol 50 mg Tablet 50 mg PO Q6H PRN (Reason: severe pain) Qty: 15 RF: 0 Continued ibuprofen [Advil] 200 mg Tablet 200 mg PO Q6H PRN (Reason: Pain) RF: 0 Discharge Orders: Discharge Order (Routine); Ordered 05/23/20 Ordered By: Johan Cool Admission Data Admit Date/Time: 05/22/20 12:43 Attending Provider: Johan Cool Admit Provider: Miles Cary Primary Care Provider: Nader Blue Other Providers: Miles Cary ; Seferino Sorto Other Interventions: Discharge Summary Assessment (RN) Last Done: 05/23/20 19:02 Coding Level of Care Code D/C Day Management >30 mins Diagnoses Ureterolithiasis N20.1 Renal colic on right side N23 Hydronephrosis of right kidney N13.30 Hypoxia R09.02
== END 2020-05-23 19:14 | disposition home or self-care (01) | DRG 661 ==
LOC: ED 10:21 → SUATTDRO 12:43 → 3N 12:43

== ENCOUNTER 2020-05-30 11:09 | Inpatient (IN) ==
[2020-05-30] MEDS ORDERED: ONDANSETRON INJ 2 MG/ML 2 ML VIAL IV STA (11:37)
[2020-05-30] MEDS ORDERED: SODIUM CHLORIDE 0.9% 1000ML 1,000 ML IV SCH (11:45)
--- NOTE | 2020-05-30 11:57 | Emergency Department Note ---
History of Present Illness General Chief complaint: Kidney Stone Stated complaint: KIDNEY STONE PAIN Time Seen by Provider: 05/30/20 11:22 History of Present Illness Maximum Pain Intensity: 10 This is a 54-year-old male that presents to the emergency department via private vehicle with complaints of "right flank pain". Patient notes that he was here on 05/22 and evaluated here in the emergency department and diagnosed with a right-sided obstructing stone. He was subsequently admitted and underwent stent placement to the right ureter. He is scheduled for lithotripsy on Thursday. He notes that starting around noontime yesterday he began with intense cold sensation and cannot get warm. He also notes increasing right flank pain. Current pain 01/13. He has been trying [id number] Tylenol without relief. He tries to refrain from taking a higher strength pain medication. He notes that he had some preop testing done and was referred here today. He also notes an intense headache that began yesterday as well. He denies any chest pain or shortness of breath. Home Medications Medication Instructions Recorded Confirmed Type acetaminophen 650 mg PO Q6H PRN #15 tab 05/23/20 05/30/20 Rx tamsulosin 0.4 mg PO QAM #30 cap 05/23/20 05/30/20 Rx Allergies Allergy/AdvReac Type Severity Reaction Status Date / Time No Known Allergies Allergy Verified 05/30/20 12:28 Past Med/Surg History Medical History History of nephrolithiasis Kidney stones Surgical History History of colonoscopy History of left inguinal hernia repair History of tonsillectomy Hx of LASIK [place] teeth removed Family History Grandmother (Maternal) Family hx of colon cancer Other No family history of adverse response to anesthesia Social History Smoking Status: Never smoker Second Hand Exposure: No; Hx Alcohol Use: Yes Alcohol type: beer and wine Hx Substance Use: No Preferred Language: Congolese Communication Ability: Effective 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 Operator Required: No Beliefs That Will Affect Care: None marital status: Current Living Situation: Spouse current occupational status: employed 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 Feels Safe at Home: Yes Assistive Devices: None Review of Systems A total of 10 systems reviewed and were otherwise negative Physical Exam Vital Signs Vital Signs - 24 hr 05/30/20 11:14 05/30/20 11:53 05/30/20 11:55 Temperature 37 C Temperature Source Oral Pulse Rate 103 H 83 77 Pulse Rate from SpO2 Sensor 79 Pulse Rhythm Regular Respiratory Rate 18 18 17 Blood Pressure 124/77 Blood Pressure Mean 92 Pulse Oximetry 95 97 97 Oxygen Delivery Method Room Air Room Air Sepsis Recent Fever Within 48 Hours No Sepsis New/Unexplained Change in Mental Status No Sepsis Action Taken by Nursing No Action Required 05/30/20 12:00 05/30/20 12:10 05/30/20 12:20 Temperature Temperature Source Pulse Rate 86 84 82 Pulse Rate from SpO2 Sensor 85 84 81 Pulse Rhythm Respiratory Rate 24 19 13 Blood Pressure Blood Pressure Mean Pulse Oximetry 96 96 98 Oxygen Delivery Method Sepsis Recent Fever Within 48 Hours Sepsis New/Unexplained Change in Mental Status Sepsis Action Taken by Nursing 05/30/20 12:30 05/30/20 12:40 05/30/20 13:18 Temperature Temperature Source Pulse Rate 82 82 Pulse Rate from SpO2 Sensor 82 82 71 Pulse Rhythm Respiratory Rate 21 22 Blood Pressure Blood Pressure Mean Pulse Oximetry 95 96 81 L Oxygen Delivery Method Sepsis Recent Fever Within 48 Hours Sepsis New/Unexplained Change in Mental Status Sepsis Action Taken by Nursing 05/30/20 13:20 Temperature Temperature Source Pulse Rate Pulse Rate from SpO2 Sensor 63 Pulse Rhythm Respiratory Rate Blood Pressure Blood Pressure Mean Pulse Oximetry 81 L Oxygen Delivery Method Sepsis Recent Fever Within 48 Hours Sepsis New/Unexplained Change in Mental Status Sepsis Action Taken by Nursing VITAL SIGNS - Vital signs and nursing notes were reviewed. Stable and afebrile on presentation. GENERAL - 54-year-old male appearing his stated age who is in no acute distress. Communicates well with provider and answers questions appropriately. SKIN - Without rashes. No meningeal or petechial rash. HEAD - NC/AT. EYES - PERRL with EOMI bilaterally. Sclera anicteric. EARS - No deformities of external structures noted on gross examination bilat erally. NOSE - Midline and without cyanosis. No epistaxis or purulent drainage noted. MOUTH/OROPHARYNX - Without perioral cyanosis. NECK - Neck with FROM. No nuchal rigidity. LUNGS - Chest wall symmetric without accessory muscle use, intercostals retractions, or central cyanosis. Normal vesicular breath sounds CTA B/L. No wheezes, rales, or rhonchi appreciated. CARDIAC - RRR with S1/S2. No murmur, rubs, or gallops appreciated. ABDOMEN - Abdominal contour normal without pulsations or visible masses. BS normoactive all four quadrants. There is mild right sided lower abdominal tenderness palpation. No palpable masses, hepatosplenomegaly, or ascites noted. EXTREMITIES - No clubbing or peripheral cyanosis. No pretibial edema present. +5/5 strength noted in UE/LE bilaterally. NEUROLOGIC - Cranial nerves II through XII grossly intact. PSYCH - A&O, and cooperates fully with examiner. Pt is very pleasant and interacts well with examiner. Course Administered Medications Acetaminophen (Acetaminophen 325 Mg Tab) 650 mg PO Q6H PRN PRN Reason: pain (scale score 1-3) Stop: 06/29/20 16:14 Last Admin: 05/30/20 16:54 Dose: 650 mg Documented by: [id number] Parenteral Electrolytes (Normosol-R) 1,000 mls @ 100 mls/hr IV .Q10H ONE Stop: 05/31/20 02:14 Last Admin: 05/30/20 16:42 Dose: 100 mls/hr Documented by: [id number] Discontinued Medications Hydromorphone HCl (Hydromorphone Inj 0.5 Mg/0.5 Ml Syr) 0.5 mg IV NOW STA Stop: 05/30/20 14:36 Last Admin: 05/30/20 14:40 Dose: 0.5 mg Documented by: [id number] Sodium Chloride (Nss 1000ml) 1,000 mls @ 999 mls/hr IV .Q1H1M BRIAN Stop: 05/30/20 12:45 Last Infusion: 05/30/20 12:55 Dose: 0 mls/hr Documented by: [id number] Admin: 05/30/20 11:53 Dose: 999 mls/hr Documented by: [id number] Ceftriaxone Sodium (Rocephin) 2,000 mg in 70 mls @ 140 mls/hr IV NOW STA Stop: 05/30/20 13:45 Last Infusion: 05/30/20 15:00 Dose: 0 mls/hr Documented by: [id number] Admin: 05/30/20 14:29 Dose: 140 mls/hr Documented by: [id number] Daptomycin 475 mg/ Syringe 9.5 mls @ 0 mls/min IV NOW STA; Protocol Stop: 05/30/20 15:55 Last Admin: 05/30/20 16:42 Dose: 1 mls/min Documented by: [id number] Morphine Sulfate (Morphine Sulfate 4 Mg/Ml 1 Ml Carp\\Vial) 4 mg IV NOW STA Stop: 05/30/20 13:44 Last Admin: 05/30/20 13:55 Dose: 4 mg Documented by: [id number] Ondansetron HCl (Ondansetron Inj 2 Mg/Ml 2 Ml Vial) 4 mg IV NOW STA Stop: 05/30/20 11:38 Last Admin: 05/30/20 11:53 Dose: 4 mg Documented by: [id number] Medical Decision Making Laboratory Data Result diagrams: 05/30/20 11:45 05/30/20 11:45 Lab Results 05/30/20 05/30/20 05/30/20 Range/Units 11:45 11:45 11:45 WBC 19.54 H (4.8-10.8) K/uL RBC 4.80 (4.7-6.1) M/uL Hgb 15.7 (14.0-18.0) g/dL Hct 44.3 (42-52) % MCV 92.3 (80-100) fL MCH 32.7 (25-34) pg MCHC 35.4 (32-36) g/dL RDW Std Deviation 41.1 (36.4-46.3) fL RDW Coeff of Geraldine 12.1 (11.5-14.5) % Plt Count 210 (130-400) K/uL MPV 10.2 (7.4-10.4) fL Immature Gran % (Auto) 0.3 % Neut % (Auto) 81.7 % Lymph % (Auto) 9.1 % [place] % (Auto) 8.8 % Eos % (Auto) 0.0 % Baso % (Auto) 0.1 % Neut # (Auto) 15.96 H (1.4-6.5) K/uL Lymph # (Auto) 1.78 (1.2-3.4) K/uL Stephen[place] # (Auto) 1.72 H (0.11-0.59) K/uL Eos # (Auto) 0.00 (0-0.5) K/uL Baso # (Auto) 0.02 (0-0.2) K/uL Immature Gran # (Auto) 0.06 H (0.00-0.02) K/uL Sodium 134 L (136-145) mmol/L Potassium 4.0 (3.5-5.1) mmol/L Chloride 103 (98-107) mmol/L Carbon Dioxide 24 (21-32) mmol/L Anion Gap 7.0 (3-11) BUN 13 (7-18) mg/dl Creatinine 1.32 (0.6-1.4) mg/dl Est Cr Clr Drug Dosing 69.4 ml/min Est GFR ( Amer) 69.9 Est GFR (Non-Af Amer) 60.3 BUN/Creatinine Ratio 9.9 L (10-20) Glucose 142 H (70-99) mg/dl Calcium 10.6 H (8.5-10.1) mg/dl Total Bilirubin 1.4 H (0.2-1) mg/dl AST 7 L (15-37) U/L ALT 19 (12-78) U/L Alkaline Phosphatase 93 (45-117) U/L Total Protein 7.2 (6.4-8.2) gm/dl Albumin 3.8 (3.4-5.0) gm/dl Globulin 3.4 (2.5-4.0) gm/dl Albumin/Globulin Ratio 1.1 (0.9-2) Urine Color [place] Urine Appearance Cloudy A (Clear) Urine pH 6.0 (4.5-7.5) Ur Specific [place] 1.024 (1.000-1.030) Urine Protein 3+ H (Negative) Urine Glucose (UA) Negative (Negative) Urine Ketones Trace H (Negative) Urine Blood 3+ H (Negative) Urine Nitrite Positive A (Negative) Urine Bilirubin 1+ H (Negative) Urine Urobilinogen Negative (Negative) Ur Leukocyte Esterase 2+ H (Negative) Urine RBC >30 H (0-4) /hpf Urine WBC >30 H (0-5) /hpf Ur Epithelial Cells 0-5 (0-5) /lpf Urine Bacteria 1+ H (Negative) Imaging Data Radiologist's Impression: KUB HISTORY: Acute generalized abdominal pain pain COMPARISON: KUB 05/23/2020, CT abdomen pelvis 05/22/2020 FINDINGS: Nonobstructive bowel gas pattern. Left nephrolithiasis redemonstrated with calculi measuring up to approximately 3 mm. The renal shadows are partially obscured by bowel gas. A right ureteral stent is in place. A 6 mm ureteral calculus is noted at the level of L2-L3 which is an unchanged positioning. Punctate radiodensities projected over the right renal shadow likely secondary to colonic stool. No pneumoperitoneum or pneumatosis. Sclerotic focus of the right iliac bone suggestive of probable bone [place] redemonstrated, 1.9 cm. No fracture. IMPRESSION: 1. Satisfactory positioning of the right ureteral stent with unchanged positioning of the 6 mm right ureteral calculus at the level of L2-L3. 2. Left nephrolithiasis redemonstrated. ACT 112: Negative or not required by law. The above report was generated using voice recognition software. It may contain grammatical, syntax or spelling errors. Electronically signed by: Unruly Corado M.D. 05/30/2020 1:58 PM [facility] Narrative Patient was seen and evaluated as above in room B12. Review was performed of nursing notes and vital signs. I did review pertinent previous visits and patient history. After obtaining a thorough history and physical examination the above work up was performed. Patient presents to us today with right flank pain, feeling an increased sense of coldness, and now headache. This is status post ureteral stent placement for an obstructing stone. On arrival the patient does appear to be flushed, inpain, and does have chills. Options of care were discussed with the patient. IV access was established. Labs were drawn. Patient was offered pain medication and wanted to refrain from any narcotics. He did have Tylenol just prior to arrival. I was going to add Toradol however the patient was fearful this may inhibit him from having his procedure on Thursday and I did speak with urology and at this time it was felt that holding off on Toradol would be reasonable. I offered the patient higher strength pain medication but he wanted to refrain at this time. Laboratory studies reveal leukocytosis 19.54 without significant anemia. No emergent metabolic abnormality other than mild T bili elevation, calcium and glucose. Sodium mildly low at 134. Urinalysis unfortunately is concerning for UTI. In the setting of recent stent placement, significant chills, interval elevation in white blood cell count I did discuss presentation with the on-call urology team. I spoke to ROLANDO Villareal. At this time we agree upon inpatient management given presentation with IV antibiotics. KUB was recommended. This was ordered. Results as above. I did order empiric IV Rocephin. Patient amenable to admission at this time. Please refer to further documentation regarding his stay. GCS: 15 In the evaluation and treatment of this patient the following differential diagnoses were entertained: Sepsis, abscess, UTI, pyelonephritis, bacteremia, stent dislodged, among others. Impression & Plan UTI (urinary tract infection), Acute right flank pain, Chills Discharge Plan Visit Data Chief Complaint: Kidney Stone Stated Complaint: KIDNEY STONE PAIN ED Provider: Gabino Schmid ED Midlevel Provider: Conor Rosas Discharge Problem: UTI (urinary tract infection), Acute right flank pain, Chills Patient Disposition: Admitted As Inpatient Condition: Good Discharge Instructions Interventions: ED Discharge Assessment Last Done: 05/30/20 15:55
[2020-05-30 12:06] LABS: Hematocrit (blood only) 44.3 % (42-52); Hemoglobin 15.7 g/dL (14.0-18.0); Mean Corpuscular Hemoglobin 32.7 pg (25-34); Mean Corpuscular Hgb Conc 35.4 g/dL (32-36); Mean Corpuscular Volume 92.3 fL (80-100); Mean Platelet Volume 10.2 fL (7.4-10.4); Platelet Count 210 K/uL (130-400); RDW Coefficient of Variation 12.1 % (11.5-14.5); RDW Standard Deviation 41.1 fL (36.4-46.3); White Blood Count 19.54 K/uL (4.8-10.8)
[2020-05-30 12:23] LABS: Albumin Level 3.8 gm/dl (3.4-5.0); BUN Creatinine Ratio 9.9 (10-20); Calcium 10.6 mg/dl (8.5-10.1); Creatinine Clr Calc Pharmacy 69.4 ml/min; Est GFR (African American) 69.9; Est GFR (Non-African American) 60.3
[2020-05-30 12:26] LABS: Albumin Globulin Ratio 1.1 (0.9-2); Bilirubin,Total 1.4 mg/dl (0.2-1); Globulin 3.4 gm/dl (2.5-4.0); Total Protein 7.2 gm/dl (6.4-8.2)
[2020-05-30 12:36] LABS: Blood Urine 3+ (Negative); Color Urine Orange; Glucose Urine UA Negative (Negative); Ketones Urine Trace (Negative); Leukocyte Esterase Urine 2+ (Negative); Nitrite Urine Positive (Negative); Protein Urine 3+ (Negative); Specific Gravity Urine 1.024 (1.000-1.030); Urobilinogen Urine Negative (Negative)
[2020-05-30 12:37] LABS: Bilirubin Urine 1+ (Negative)
[2020-05-30 12:38] LABS: Appearance Urine Cloudy (Clear)
[2020-05-30 12:41] LABS: Bacteria Urine 1+ (Negative); Epithelial Cell Urine 0-5 /lpf (0-5); RBC Urine >30 /hpf (0-4); WBC Urine >30 /hpf (0-5)
[2020-05-30] MEDS ORDERED: cefTRIAXone SODIUM 2,000 MG/70 ML BAG IV STA (13:16)
[2020-05-30 13:20] LABS: Basophils # (auto) 0.02 K/uL (0-0.2); Basophils % (auto) 0.1 %; Immature Granulocytes # (auto) 0.06 K/uL (0.00-0.02); Immature Granulocytes % (auto) 0.3 %; Lymphocytes # (auto) 1.78 K/uL (1.2-3.4); Lymphocytes % (auto) 9.1 %; Monocytes # (auto) 1.72 K/uL (0.11-0.59); Monocytes % (auto) 8.8 %; Neutrophils # (auto) 15.96 K/uL (1.4-6.5); Neutrophils % (auto) 81.7 %
[2020-05-30] MEDS ORDERED: MoRPHine SULFATE 4 MG/ML 1 ML CARP\\VIAL IV STA (13:43)
--- NOTE | 2020-05-30 13:59 | XRay Report ---
KUB HISTORY: Acute generalized abdominal pain pain COMPARISON: KUB 05/23/2020, CT abdomen pelvis 05/22/2020 FINDINGS: Nonobstructive bowel gas pattern. Left nephrolithiasis redemonstrated with calculi measuri ng up to approximately 3 mm. The renal shadows are partially obscured by bowel gas. A right ureteral stent is in place. A 6 mm ureteral calculus is noted at the level of L2-L3 which is an unchanged posi tioning. Punctate radiodensities projected over the right renal shadow likely secondary to colonic st ool. No pneumoperitoneum or pneumatosis. Sclerotic focus of the right iliac bone suggestive of probab le bone [place] redemonstrated, 1.9 cm. No fracture. IMPRESSION: 1. Satisfactory positioning of the right ureteral stent with unchanged positioning of the 6 mm right ureteral calculus at the level of L2-L3. 2. Left nephrolithiasis redemonstrated. ACT 112: Negative or not required by law. The above report was generated using voice recognition software. It may contain grammatical, syntax o r spelling errors. Electronically signed by: Unruly Corado M.D. 05/30/2020 1:58 PM
--- NOTE | 2020-05-30 14:09 | History & Physical Report ---
Date of Service May 30, 2020 Assessment & Plan (1) Ureterolithiasis: KUB x-ray on admission showed 6 mm right ureteral calculus at the level of L2-L3 and good stent position. Increased pain and subjective fevers/chills concerning for infectious process. - Ceftrixone - Blood and urine cultures drawn prior to abx administration - IV fluids - Pain control (avoid NSAIDs per urology) - Urology consulted; aware of consult - NPO @ midnight - Will get right kidney ultrasound to r/o abscess and hydronephrosis (2) UTI (urinary tract infection): UA on admission indicates infection. Patient also has leukocytosis. Given pain location, also possible pyelonephritis. - As above (3) Acute kidney injury: Baseline Cr ~1.0. - Cr up to 1.3 on admission. Possibly post-renal if stent has clogged vs. pre- renal from feeling ill over last 24 hours. - IV fluids - Monitor Cr (4) Elevated bilirubin: Mildly elevated bilirubin with priors mildly high as well. CT a/p on 05/22 without any gallbladder pathology. - Possibly mild cholestasis vs. Gilbert's? - Will check gallbladder on ultrasound, but low concern for acute process. (5) DVT prophylaxis: SCDs - Low DVT risk per admission calculator & holding heparin for likely procedure History of Present Illness Primary Care Provider: Nader Blue 54yo M w/ hx of kidney stones who presents with chills and right flank pain with concern for infection in the right kidney. The patient was recently admitted for a right kidney stone with stent placed. The plan had been for the patient to have shock wave lithotripsy on Thursday (06/01/2019). Yesterday, he was in the hospital and at the Urology office for some pre-op testing. He went home, and shortly after in the afternoon, he reports significant, sudden increase in his right flank pain along with fevers, chills, sweats, and generalized fatigue. Overnight, he continued to have pain and subjective fevers/chills and presented today to the hospital. He notes some mild nausea, but no vomiting. No lightheadedness, dizziness, or other concerning symptoms. Allergies Allergy/AdvReac Type Severity Reaction Status Date / Time No Known Allergies Allergy Verified 05/30/20 12:28 Home Medications Medication Instructions Recorded Confirmed Type acetaminophen 650 mg PO Q6H PRN #15 tab 05/23/20 05/30/20 Rx tamsulosin 0.4 mg PO QAM #30 cap 05/23/20 05/30/20 Rx Past Med/Surg History Medical History History of nephrolithiasis Kidney stones Surgical History History of colonoscopy History of left inguinal hernia repair History of tonsillectomy Hx of LASIK [place] teeth removed Family History Grandmother (Maternal) Family hx of colon cancer Other No family history of adverse response to anesthesia Social History Smoking Status: Never smoker Second Hand Exposure: No; Hx Alcohol Use: Yes Alcohol type: beer, wine and hard liquor Hx Substance Use: No Preferred Language: Icelandic Communication Ability: Effective Steam Gigger Required: No Beliefs That Will Affect Care: None marital status: Current Living Situation: Spouse current occupational status: employed 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 Feels Safe at Home: Yes Assistive Devices: None Review of Systems Review of Systems: All systems reviewed & are unremarkable except as noted in HPI & below Physical Exam Constitutional: WD/WN, vitals as above Eyes: EOM intact bilaterally; no conjunctival abnormality ENMT: external ear and nose normal, oropharynx normal Neck: trachea midline, no thyromegaly normal visual inspection Respiratory: normal respiratory effort, lungs clear to auscultation no respiratory distress Cardiovascular: RRR, no murmur, no edema Gastrointestinal (Abdomen): Inspection/Auscultation: abdomen normal to inspection; abdomen not distended Musculoskeletal: no cyanosis or clubbing, extremities motor strength 5/5 Skin: no rashes, warm and dry Neurologic: moves all extremities and awake Psychiatric: Orientation: alert, oriented to person and cooperative Genitourinary: + CVA tenderness (Right side) Results & Data Results & Data ([facility]) Vital Signs (Past 12 Hours) Vital Signs Temp Pulse Resp BP Pulse Ox 05/30/20 11:53 83 18 97 05/30/20 11:14 37 C 103 H 18 124/77 95 Code Status & VTE Plan VTE Prophylaxis Plan VTE Prophylaxis will be ordered: Yes PG Care Time/CCT Total # of Minutes Spent Total Time Spent with Patient: Total time spent is greater than 50% in coordination of care (as documented) at patient's floor/unit and/or counseling patient: Coding Level of Care Code 90281 OBS Care - Level 3 Diagnoses Ureterolithiasis N20.1 UTI (urinary tract infection) N39.0 Acute kidney injury N17.9 Elevated bilirubin R17 DVT prophylaxis Z29.9
[2020-05-30] MEDS ORDERED: HYDROmorphone INJ 0.5 MG/0.5 ML SYR IV STA (14:35)
--- NOTE | 2020-05-30 14:41 | Urology Consultation ---
Date of Consultation May 30, 2020 Assessment & Plan (1) UTI (urinary tract infection): (2) Renal colic on right side: (3) Ureterolithiasis: 54 year-old male patient, s/p right ureteral stent placement secondary to 6 mm obstructing right proximal ureteral stone, admitted with right flank pain, chills, and suspected UTI. -Plan of care reviewed with Dr. Cope. -Patient currently afebrile. -Labs reviewed - white count elevated, increase in creatinine from baseline. -Imaging reviewed - satisfactory positioning of the right ureteral stent. -Urine suspicious for infection, preliminary urine culture Streptococcus species. -Blood cultures pending. -Continue broad spectrum antibiotic therapy, await culture results. -Continue supportive care and pain control. -No acute intervention indicated at this time. -Upcoming ESWL will be cancelled. Plan to reschedule once infection treated. -Will continue to follow while inpatient. History of Present Illness Reason for Consultation: Ureterolithiasis, concern for UTI History of Present Illness 54 year-old male patient, with history of kidney stones, presented to the emergency room today with complaints of fever/chills, right flank pain, malaise, and fatigue. Patient with recent hospital admission 05/22-05/23 secondary to obstructing 6 mm right proximal ureteral calculus. He underwent emergent cystoscopy, right ureteral stent placement with Dr. Carlson on 05/23/20. During last admission, patient was afebrile and urine was not indicative of infection. He was seen in the urology office yesterday to discuss upcoming scheduled ESWL (scheduled for Thursday06/01/20). He had preoperative testing after his office visit. States after he returned home, he developed sudden onset chills with increase in right flank pain. He states symptoms began to worsen and he started to feel ill overnight. Reports subjective fever of 101. Do to worsening symptoms, he presented to emergency room. Chart review: Afebrile. Wbc 19.54 (previously 10.46) Hgb 15.7 Creatinine 1.32 (previously 1.08) Urinalysis +2 leukocytes, >30 rbc, >30 wbc, nitrate positive, +1 bacteria. Preliminary urine culture 05/29 streptococcus species. Blood cultures pending, patient started on IV Ceftriaxone. KUB 05/30 - IMPRESSION: 1. Satisfactory positioning of the right ureteral stent with unchanged positioning of the 6 mm right ureteral calculus at the level of L2-L3. 2. Left nephrolithiasis remonstrated. Patient examined at bedside. He reports he is not feeling well. Continues to have chills/shakes. Denies current subjective fever. He reports he has had on- going dysuria since his hospital discharge last week. Reports hematuria, frequency, and urgency. Does not always feel like he empties his bladder fully. Denies nausea or vomiting. Denies dizziness/lightheadedness. Does report history of a kidney stones, roughly 10 years ago. He did not require surgical intervention for this, passed stone spontaneously. Denies known family history of stones. Overall, symptoms are worsening. Denies additional urologic concerns today. Allergies Allergy/AdvReac Type Severity Reaction Status Date / Time No Known Allergies Allergy Verified 05/30/20 12:28 Home Medications Medication Instructions Recorded Confirmed Type acetaminophen 650 mg PO Q6H PRN #15 tab 05/23/20 05/30/20 Rx tamsulosin 0.4 mg PO QAM #30 cap 05/23/20 05/30/20 Rx Patient History Medical History History of nephrolithiasis Kidney stones Surgical History History of colonoscopy History of left inguinal hernia repair History of tonsillectomy Hx of LASIK [place] teeth removed Family History Grandmother (Maternal) Family hx of colon cancer Other No family history of adverse response to anesthesia Social History Smoking Status: Never smoker Second Hand Exposure: No; Hx Alcohol Use: Yes Alcohol type: beer, wine and hard liquor Hx Substance Use: No Preferred Language: Slovak Communication Ability: Effective Accounting System Expert Required: No Beliefs That Will Affect Care: None marital status: Current Living Situation: Spouse current occupational status: employed 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 Feels Safe at Home: Yes Assistive Devices: None Review of Systems Constitutional: as per Subjective / HPI, + fever and + chills Eyes: + problem reported (Right eye irritation) Ear, Nose, Mouth, Throat: no dizziness Respiratory: no cough and no dyspnea Cardiovascular: no chest pain and no edema Gastrointestinal: as per Subjective / HPI Genitourinary: + as per Subjective / HPI Musculoskeletal: as per Subjective / HPI Integumentary: no problem reported Neurologic: no dizziness Endocrine: + fatigue Hematologic / Lymphatic: no easy bleeding and no easy bruising Physical Exam Constitutional: well developed, well nourished and + ill appearing; no acute distress Eyes: no conjunctival abnormality ENMT: Ears: no external ear abnormality Neck: normal visual inspection and trachea midline Respiratory: normal respiratory effort and able to speak in complete sentences; no respiratory distress and no audible wheezes Cardiovascular: Extremities: no calf tenderness and no edema Gastrointestinal (Abdomen): Inspection/Auscultation: abdomen normal to inspection; abdomen not distended Percussion/Palpation: + abdomen tender (Diffuse tenderness) and abdomen soft; no guarding Musculoskeletal: Moves all extremities without difficulty. Skin: No visible rashes, lesions, or wounds noted. Neurologic: moves all extremities and awake Psychiatric: Orientation: alert, oriented x 3 and cooperative Affect: euthymic affect Genitourinary: + CVA tenderness (Right) Results & Data ([facility]) Vital Signs (Past 12 Hours) Vital Signs Temp Pulse Pulse Resp BP BP Pulse Ox 05/30/20 14:00 37.5 C 84 20 149/83 H 97 05/30/20 11:53 83 18 97 05/30/20 11:14 37 C 103 H 18 124/77 95 PG Care Time/CCT Total # of Minutes Spent Total Time Spent with Patient: Total time spent is greater than 50% in coordination of care (as documented) at patient's floor/unit and/or counseling patient: Coding Level of Care Code 39617 Inpt Consult Level 4 Diagnoses UTI (urinary tract infection) N39.0 Renal colic on right side N23 Ureterolithiasis N20.1
--- NOTE | 2020-05-30 15:47 | Ultrasound Report ---
US abdomen limited CLINICAL HISTORY: Right-sided abdominal pain COMPARISON STUDY: CT scan dated 05/22/2020 FINDINGS: The pancreas appears sonographically normal. The gallbladder appears sonographically normal. The live r appears sonographically normal. There is no ductal dilatation. The right kidney measures 11.1 cm in length. There is a 22 mm right renal cyst. There is no hydroneph rosis. IMPRESSION: 1. 22 mm right renal cyst 2. No hydronephrosis 3. Sonographically unremarkable liver gallbladder pancreas ACT 112: Negative or not required by law. Electronically signed by: Michael Natarajan M.D. 05/30/2020 3:46 PM
[2020-05-30] MEDS ORDERED: DAPTOmycin 475 MG in SYRINGE 0 ML IV STA (15:54)
[2020-05-30] MEDS ORDERED: VANCOMYCIN HCL 2,000 MG in SODIUM CHLORIDE 0.9% 500 ML IV ONE (16:00)
[2020-05-30] MEDS ORDERED: NORMOSOL-R 1,000 ML IV ONE (16:15)
[2020-05-30] MEDS ORDERED: ONDANSETRON INJ 2 MG/ML 2 ML VIAL IV PRN (16:15)
[2020-05-30] MEDS: ACETAMINOPHEN 325 MG TAB PO PRN ×2 (16:54→23:05)
[2020-05-30] MEDS: MoRPHine SULFATE 4 MG/ML 1 ML CARP\\VIAL IV PRN ×2 (20:11→23:10)
[2020-05-31] MEDS: MoRPHine SULFATE 4 MG/ML 1 ML CARP\\VIAL IV PRN ×2 (04:16→07:58)
[2020-05-31 06:10] LABS: Hematocrit (blood only) 40.7 % (42-52); Hemoglobin 14.3 g/dL (14.0-18.0); Mean Corpuscular Hemoglobin 32.6 pg (25-34); Mean Corpuscular Hgb Conc 35.1 g/dL (32-36); Mean Corpuscular Volume 92.9 fL (80-100); Platelet Count 182 K/uL (130-400); RDW Coefficient of Variation 12.2 % (11.5-14.5); RDW Standard Deviation 41.6 fL (36.4-46.3); Red Blood Count 4.38 M/uL (4.7-6.1); White Blood Count 19.88 K/uL (4.8-10.8)
[2020-05-31 06:37] LABS: Aspartate Aminotransferase < 3 U/L (15-37); BUN Creatinine Ratio 13.4 (10-20); Blood Urea Nitrogen 14 mg/dl (7-18); Carbon Dioxide 26 mmol/L (21-32); Chloride 105 mmol/L (98-107); Creatinine Clr Calc Pharmacy 88.9 ml/min; Est GFR (African American) 94.3; Est GFR (Non-African American) 81.4; Glucose 113 mg/dl (70-99); Magnesium 2.1 mg/dl (1.8-2.4); Potassium 4.2 mmol/L (3.5-5.1); Sodium 135 mmol/L (136-145)
[2020-05-31 06:40] LABS: Alanine Aminotransferase 16 U/L (12-78); Albumin Globulin Ratio 0.9 (0.9-2); Alkaline Phosphatase 74 U/L (45-117); Bilirubin,Total 0.9 mg/dl (0.2-1); Globulin 3.4 gm/dl (2.5-4.0); Total Protein 6.4 gm/dl (6.4-8.2)
[2020-05-31] MEDS: ACETAMINOPHEN 325 MG TAB PO PRN ×2 (07:58→20:25)
[2020-05-31] MEDS: TAMSULOSIN HCL 0.4 MG CAP PO SCH (07:59)
[2020-05-31] MEDS: KETOROLAC 30 MG/ML VIAL IV PRN ×2 (10:24→20:26)
--- NOTE | 2020-05-31 11:47 | Urology Progress Note ---
Date of Service May 31, 2020 Assessment & Plan (1) Ureterolithiasis: 54 year-old male patient, s/p right ureteral stent placement secondary to 6 mm obstructing right proximal ureteral stone, admitted with right flank pain, chills, and UTI. -Plan of care reviewed with Dr. Cope. -Patient currently afebrile, reports subjective improvement today. -Last fever was yesterday evening, Tmax 39.2. -Labs reviewed - white count elevated, creatinine 1.03. -Imaging reviewed - satisfactory positioning of the right ureteral stent. -UC&S grew Enterococcus. Continue IV Daptomycin. -Blood cultures pending. Recommend at least 10-14 days of antibiotics pending BCx. -Continue supportive care and pain control. -No acute intervention indicated at this time. -Upcoming ESWL was cancelled. Plan to reschedule once infection treated. -Will continue to follow while inpatient. Admission and Anticipated Discharge Date Admission Date: May 30, 2020 Subjective Pt seen and examined at bedside. Awake, alert and sitting up in bed. Reports feeling improved from yesterday. Continues to feel intermittently hot then sweaty. Reports intermittent right flank discomfort. Utilizing IV morphine and Ketorolac as needed. Mild dysuria and hematuria. Tolerating diet, no nausea or vomiting. No additional concerns today. Chart review: Afebrile, Tmax 39.2 on 05/30 @1819 Creatinine 1.03 WBC 19.88 Hgb 14.3 VS - BP 138/71, HR 76, Resp 18, Temp 36.7, O2 sat 93% on RA UC&S - Enterococcus, on IV Daptomycin BCx pending Review of Systems Constitutional: as per Subjective / HPI Gastrointestinal: as per Subjective / HPI Genitourinary: + as per Subjective / HPI Physical Exam Constitutional: well developed and well nourished; no acute distress and not ill appearing Respiratory: normal respiratory effort and able to speak in complete sentences; no respiratory distress and no labored breathing Cardiovascular: Extremities: no pedal edema Gastrointestinal (Abdomen): Inspection/Auscultation: abdomen normal to inspection; abdomen not distended Musculoskeletal: Head/Neck/Chest: normocephalic and head atraumatic Extremities: extremities normal to inspection Skin: no rashes, warm and dry Neurologic: moves all extremities and awake Psychiatric: A+Ox3, euthymic affect Results & Data ([place]) Vital Signs (Past 12 Hours) Vital Signs Temp Pulse Resp BP Pulse Ox 05/31/20 11:05 36.7 C 05/31/20 08:06 37.1 C 05/31/20 08:00 37.9 C H 76 18 138/71 93 PG Care Time/CCT Total # of Minutes Spent Total Time Spent with Patient: Total time spent is greater than 50% in coordination of care (as documented) at patient's floor/unit and/or counseling patient: Coding Level of Care Code 34219 Subseq Hosp Care Lvl 2 Diagnoses Ureterolithiasis N20.1
[2020-05-31] MEDS ORDERED: cefTRIAXone SODIUM 2,000 MG in DEXTROSE 5% 50 ML IV SCH (14:00)
[2020-05-31] MEDS ORDERED: DAPTOmycin 475 MG in SYRINGE 0 ML IV SCH (16:00)
[2020-06-01] MEDS: KETOROLAC 30 MG/ML VIAL IV PRN (06:26)
--- NOTE | 2020-06-01 06:29 | Hospitalist Progress Note ---
Date of Service May 31, 2020 Assessment & Plan (1) Sepsis: 2nd to UTI. UTI is complicated due to presence of recently placed ureteral stent for obstructing kidney stone. Cont IV daptomycin. Stop IV rocephin. Follow blood cultures. CBC in am. (2) UTI (urinary tract infection): Complicated / post-procedural UTI in setting of recent obstructing kidney stone, ureteral stent deployment, cystoscopy, etc. Sepsis/UTI is complication of care. UTI 2nd to enterococcus. STOP rocephin. Continue daptomyin. Will be able to use amoxicillin or augmentin at discharge as enterococcus is PCN sens. Likely with element of pyelonephritis. Will need 14 days Rx. Can't rule out prostate involvement; consider PSA or CARMEN. (3) Pyelonephritis: right-sided suspected (4) Ureterolithiasis: 6 mm right ureteral calculus at the level of L2-L3 s/p recent stent placement lithotripsy tomorrow canceled due to UTI appreciate urology consultation; no procedures will be needed durng this stay treat UTI (5) Acute kidney injury: improved Cr at admission 1.3 now 1 BMP in am (6) Elevated bilirubin: Mildly elevated bilirubin with prior bilirubin levels mildly high as well. CT abd/pelvis on 05/22 without any gallbladder pathology. Gilbert's? Liver/GB normal on ultrasound. Follow. (7) DVT prophylaxis: low DVT risk per admission calculator updated by phone this evening given sepsis, etc change observation to full admission status Admission and Anticipated Discharge Date Admission Date: May 31, 2020 Subjective patient feeling better today still with poor appetite some burning with urination but mild right flank pain persists fever/chills overnight no abdominal pain he is aware that lithotripsy for tomorrow is canceled Review of Systems Constitutional: + fever, + chills, + fatigue and + anorexia Respiratory: no cough and no dyspnea Cardiovascular: no chest pain Physical Exam Constitutional: well developed and well nourished; no acute distress and no altered mental status ENMT: external ear and nose normal, oropharynx normal Respiratory: normal respiratory effort, lungs clear to auscultation Cardiovascular: Rate/Rhythm: regular rate and regular rhythm Heart Sounds: normal S1 and normal S2; no murmur Vessels: posterior tibial pulses present and dorsalis pedis pulses present; no JVD Extremities: no edema Gastrointestinal (Abdomen): Inspection/Auscultation: normal bowel sounds; abdomen not distended Percussion/Palpation: + abdomen tender (mild, right flank, with palpation ) and abdomen soft; no guarding and no hepatosplenomegaly Skin: no rashes, warm and dry Psychiatric: A+Ox3, euthymic affect Results & Data Results & Data ([facility]) Vital Signs (Past 12 Hours) Vital Signs Temp Pulse Resp BP Pulse Ox 05/31/20 22:40 37.0 C 62 16 119/70 96 WBC count 19,000 urine cx - enterococcus - sens to PCN, dapto, vanco PG Care Time/CCT Total # of Minutes Spent Total Time Spent with Patient: Total time spent is greater than 50% in coordination of care (as documented) at patient's floor/unit and/or counseling patient: Coding Level of Care Code 82237 Subseq Hosp Care Lvl 2 Diagnoses Sepsis A41.9 UTI (urinary tract infection) N39.0 Pyelonephritis N12 Ureterolithiasis N20.1 Acute kidney injury N17.9 Elevated bilirubin R17 DVT prophylaxis Z29.9
[2020-06-01 06:51] LABS: Hemoglobin 13.9 g/dL (14.0-18.0); Mean Corpuscular Hgb Conc 34.8 g/dL (32-36); Platelet Count 172 K/uL (130-400); RDW Coefficient of Variation 12.2 % (11.5-14.5); RDW Standard Deviation 41.4 fL (36.4-46.3); Red Blood Count 4.35 M/uL (4.7-6.1); White Blood Count 11.28 K/uL (4.8-10.8)
[2020-06-01 07:27] LABS: BUN Creatinine Ratio 21.3 (10-20); Creatinine Clr Calc Pharmacy 99.6 ml/min; Est GFR (African American) 108.1; Est GFR (Non-African American) 93.3; Potassium 3.9 mmol/L (3.5-5.1)
--- NOTE | 2020-06-01 08:20 | Urology Progress Note ---
Date of Service June 01, 2020 Assessment & Plan (1) Ureterolithiasis: (2) UTI (urinary tract infection): 54 year-old male patient, s/p right ureteral stent placement secondary to 6 mm obstructing right proximal ureteral stone, admitted with right flank pain, chills, and UTI. -Patient clinically progressing as expected. -Now afebrile. -Labs reviewed - white count improving, creatinine stable. -Urine culture positive for Enterococcus, sensitive to Ampicillin. -Preliminary blood cultures no growth after 24 hours. -Recommend continued supportive care and antibiotics. -Recommend total of 10-14 days antibiotic therapy. -Upcoming ESWL tomorrow cancelled. Plan to reschedule once infection treated, likely in 1-2 weeks. -Expected clinical course reviewed with patient, all questions answered. Thank you for allowing us to participate in the acute care of Mr. Warner. Please reconsult us with additional questions, concerns or changes in patient status. Admission and Anticipated Discharge Date Admission Date: May 31, 2020 Subjective Pt seen and examined at bedside. Awake, alert and sitting up in bed. Reports he feels "much better" overall since admission. Denies fevers or chills. Reports right flank pain has improved, requiring less PRN pain medication. Has had improvement in dysuria. Denies hematuria, frequency, or urgency. Tolerating diet, no nausea or vomiting. Chart review: Afebrile overnight and this morning. Creatinine 0.92 WBC 11.28 (previously 19.88) Hgb 13.9 Final urine culture positive for Enterococcus, on IV Daptomycin. Oral options include Ampicillin. Blood cultures no growth after 24 hours. No additional concerns today. Review of Systems Constitutional: as per Subjective / HPI; no fever and no chills Gastrointestinal: as per Subjective / HPI; no nausea and no vomiting Genitourinary: + as per Subjective / HPI Physical Exam Constitutional: well developed and well nourished; no acute distress and not ill appearing Respiratory: normal respiratory effort and able to speak in complete sentences; no respiratory distress and no audible wheezes Gastrointestinal (Abdomen): Inspection/Auscultation: abdomen normal to inspection; abdomen not distended Percussion/Palpation: abdomen soft; abdomen nontender and no guarding Psychiatric: Orientation: alert, oriented x 3 and cooperative Affect: euthymic affect Genitourinary: no CVA tenderness Results & Data ([facility]) Vital Signs (Past 12 Hours) Vital Signs Temp Pulse Resp BP Pulse Ox 06/01/20 07:33 36.7 C 60 16 117/71 96 05/31/20 22:40 37.0 C 62 16 119/70 96 PG Care Time/CCT Total # of Minutes Spent Total Time Spent with Patient: Total time spent is greater than 50% in coordination of care (as documented) at patient's floor/unit and/or counseling patient: Coding Level of Care Code 36406 Subseq Hosp Care Lvl 2 Diagnoses Ureterolithiasis N20.1 UTI (urinary tract infection) N39.0
[2020-06-01] MEDS: TAMSULOSIN HCL 0.4 MG CAP PO SCH (08:36)
[2020-06-01] MEDS ORDERED: ADVANCED PROBIOTIC 1250 MG CAPSULE PO SCH (10:00)
[2020-06-01] MEDS: AMOXICILLIN 500 MG CAP PO SCH ×2 (10:59→15:18)
--- NOTE | 2020-06-01 14:40 | Discharge Summary ---
Date of Service date of admission - May 31, 2020 date of discharge - June 01, 2020 Admission HPI Per Admitting Provider 54yo M w/ hx of kidney stones who presents with chills and right flank pain with concern for infection in the right kidney. The patient was recently admitted for a right kidney stone with stent placed. The plan had been for the patient to have shock wave lithotripsy on Thursday (06/01/2019). Yesterday, he was in the hospital and at the Urology office for so me pre-op testing. He went home, and shortly after in the afternoon, he reports significant, sudden increase in his right flank pain along with fevers, chills, sweats, and generalized fatigue. Overnight, he continued to have pain and subjective fevers/chills and presented today to the hospital. He notes some mild nausea, but no vomiting. No lightheadedness, dizziness, or other concerning symptoms. Principal Diagnosis Right sided pyelonephritis / complicated UTI Discharge Exam Constitutional well developed and well nourished; no acute distress and no altered mental status ENMT external ear and nose normal, oropharynx normal Respiratory normal respiratory effort, lungs clear to auscultation Cardiovascular Rate/Rhythm: regular rate and regular rhythm Heart Sounds: normal S1 and normal S2; no murmur Vessels: posterior tibial pulses present and dorsalis pedis pulses present; no JVD Extremities: no edema Gastrointestinal (Abdomen) Inspection/Auscultation: normal bowel sounds; abdomen not distended Percussion/Palpation: abdomen soft; abdomen nontender, no guarding and no hepatosplenomegaly Skin no rashes, warm and dry Psychiatric A+Ox3, euthymic affect Discharge Data Allergies Allergy/AdvReac Type Severity Reaction Status Date / Time No Known Allergies Allergy Verified 05/30/20 12:28 Consultations [facility] Ordered Studies 05/30/20 14:11 US abdomen limited Urgent IMPRESSION: 1. 22 mm right renal cyst 2. No hydronephrosis 3. Sonographically unremarkable liver gallbladder pancreas Hospital Course (1) Sepsis: 2nd to UTI and right-sided pyelonephritis. UTI was complicated due to presence of recently placed ureteral stent for obstructing kidney stone. Urine culture grew enterococcus, penicillin sensitive. Blood cultures were negative during the stay. Patient remained hemodynamically stable while hospitalized. (2) UTI (urinary tract infection): Complicated / post-procedural UTI in setting of recent obstructing kidney stone, ureteral stent deployment, cystoscopy, etc. Sepsis/UTI is complication of that care. UTI 2nd to enterococcus. Likely with element of pyelonephritis on right. Received IV antibiotics while hospitalized. Transitioned to amoxicillin prior to discharge. Will complete an amoxicillin course to total 14 days of therapy. (3) Pyelonephritis: right-sided clinical (4) Ureterolithiasis: 6 mm right ureteral calculus at the level of L2-L3. s/p recent stent placement on 05/23/[address] Rajesh Carlson. Seen by [facility] urology this admission. Lithotripsy was delayed because of the infection. Patient to return as an outpatient in 1 week for the elective lithotripsy. (5) Acute kidney injury: Peak Cr at admission 1.3 Discharge Cr 0.9 2nd sepsis (6) Elevated bilirubin: Mildly elevated bilirubin with prior bilirubin levels mildly high as well. CT abd/pelvis on 05/22 without any gallbladder pathology. Gilbert's? Liver/GB normal on ultrasound. Follow up as outpatient. Total Time Total Time Spent Total Time Spent (In Minutes): 25 Total Time Includes: Examination of the Patient, Discharge Planning and Medication Reconciliation Discharge Plan Discharge Items Patient Disposition: Home - Self-Care Reason For Visit: Urinary Tract Infection Discharge Diagnosis: 1. urinary tract infection 2. possible right-sided kidney infection (also known as pyelonephritis) 3. right-sided kidney stone with recent placement of stent Condition on Discharge: Good Activity: As commented below Activity Comment: light activities until your lithotripsy is performed Lifting: No more than 10 pounds Bathing: No limitations Sexual Activity: Wait until after follow-up appointment Exercise/Sports: Wait until after follow-up appointment Driving/Machine Use: No limitations Non-emergency contact: Primary Care Provider and Urologist Call non-emergency contact if: you have any medication questions, your symptoms worsen, your pain is not controlled, your pain is worsening and you have a fever Follow-up/Referrals: Rajesh Carlson MD [Physician] - (report to [facility] on June 08 for scheduled lithotripsy ) Nader Blue [Primary Care Provider] - Diet: Regular Addtl Attending Provider Instructions: Mr Warner, You were admitted to the hospital for concern of urinary tract infection and possibly even a right-sided kidney infection. Your fevers, chills, and urinary discomfort were due to the infection. Urine culture grew bacteria, and you received IV antibiotics during the stay. Your symptoms, fever, pain, etc all improved while here. Fortunately your blood cultures have remained negative, and your blood work has normalized. The [facility] Urology team had to reschedule your lithotripsy because of the infection. Lithotripsy is now scheduled for June 08. Recommendations: 1. amoxicillin 500mg three times daily for 12 more days beginning this afternoon upon return home. This is your antibiotic. 2. probiotics daily for 14 days. Start these today. These may prevent diarrhea from the antibiotics. 3. [id number] tylenol as needed for pain. 4. please follow any instructions from the Urology team regarding medications to avoid prior to your lithotripsy procedure. 5. continue the tamsulosin medication once daily. This medication may prevent some pain/spasm of the urinary tract from the stent. Return to [facility] if: * you have recurrent fevers over 100 degrees * you have worsening abdominal pain or back pain * you have vomiting or significant diarrhea * you have large amounts of blood in the urine * you have difficulty urinating * any other concerns Continue to feel better! It was a pleasure to meet you, -Dr Pete Pending Studies at Discharge: Yes Studies:: blood cultures, but thus far they are negative (no infection in blood stream) Stand-Alone Forms: [facility], Smoking Cessation Medications and DC Order Prescriptions: New amoxicillin 500 mg Capsule 500 mg PO TID 12 Days Qty: 36 RF: 0 Advanced Probiotic 625 mg (10 billion cell) Capsule 2 cap PO DAILY 14 Days Qty: 28 RF: 0 Continued tamsulosin 0.4 mg Capsule 0.4 mg PO QAM Qty: 30 RF: 0 acetaminophen 325 mg Tablet 650 mg PO Q6H PRN (Reason: pain) Qty: 15 RF: 0 Discharge Orders: Discharge Order (Routine); Ordered 06/01/20 Ordered By: Miles Arevalo/Other Patient Handouts: Anatomy of the Male Urinary Tract, Treating Kidney Stones ..., ED Kidney Stone w/ Colic Admission Data Admit Date/Time: 05/31/20 16:24 Attending Provider: Miles Pete Admit Provider: Onesimo Galvan Primary Care Provider: Nader Blue Other Providers: Isidoro Cope ; Miles Pete Other Interventions: Discharge Summary Assessment (RN) Last Done: 06/01/20 15:09 Coding Level of Care Code D/C Day Management <30 mins Diagnoses Sepsis A41.9 UTI (urinary tract infection) N39.0 Pyelonephritis N12 Ureterolithiasis N20.1 Acute kidney injury N17.9 Elevated bilirubin R17
== END 2020-06-01 15:38 | disposition home or self-care (01) | DRG 862 ==
LOC: 3N 11:09 → ED 11:09 → SUATTDRO 13:51 → 3N 15:55

== ENCOUNTER 2020-06-18 05:45 | Inpatient (IN) ==
[2020-06-18] MEDS ORDERED: MoRPHine SULFATE 4 MG/ML 1 ML CARP\\VIAL IV STA ×2 (05:56→07:42)
[2020-06-18] MEDS ORDERED: ONDANSETRON INJ 2 MG/ML 2 ML VIAL IV STA (05:56)
[2020-06-18] MEDS ORDERED: SODIUM CHLORIDE 0.9% 500 ML IV STA (05:56)
[2020-06-18 06:23] LABS: Hematocrit (blood only) 42.5 % (42-52); Hemoglobin 15.2 g/dL (14.0-18.0); Mean Corpuscular Hemoglobin 32.5 pg (25-34); Mean Corpuscular Hgb Conc 35.8 g/dL (32-36); Mean Platelet Volume 10.4 fL (7.4-10.4); Platelet Count 260 K/uL (130-400); RDW Coefficient of Variation 12.1 % (11.5-14.5); RDW Standard Deviation 40.5 fL (36.4-46.3); Red Blood Count 4.67 M/uL (4.7-6.1); White Blood Count 18.71 K/uL (4.8-10.8)
[2020-06-18 06:28] LABS: Appearance Urine Turbid (Clear); Bacteria Urine Automated Negative (Negative); Bilirubin Urine 1+ (Negative); Blood Urine 3+ (Negative); Color Urine Orange; Epithelial Cell Urine Auto 20-30 /lpf (0-5); Glucose Urine UA Negative (Negative); Ketones Urine Trace (Negative); Leukocyte Esterase Urine 2+ (Negative); Nitrite Urine Positive (Negative); Protein Urine 3+ (Negative); RBC Urine Automated >30 /hpf (0-4); Specific Gravity Urine 1.019 (1.000-1.030); Urobilinogen Urine Negative (Negative); WBC Urine Automated >30 /hpf (0-5); pH Urine 6.5 (4.5-7.5)
[2020-06-18 06:40] LABS: Cast Urine Automated 0 /lpf (0-5)
[2020-06-18] MEDS ORDERED: PIPERACILL/TAZOBAC CONSULT ACTIVE PRN (06:40)
[2020-06-18] MEDS ORDERED: PIPERACILLIN/TAZOBACTAM 4.5 GM/120 ML BAG IV ONE (06:40)
[2020-06-18 06:44] LABS: Albumin Level 3.6 gm/dl (3.4-5.0); BUN Creatinine Ratio 8.4 (10-20); Calcium 10.2 mg/dl (8.5-10.1); Est GFR (African American) 79.2; Est GFR (Non-African American) 68.4; Potassium 4.2 mmol/L (3.5-5.1)
--- NOTE | 2020-06-18 06:46 | Emergency Department Note ---
History of Present Illness General Chief complaint: Kidney Stone Stated complaint: KIDNEY STONES Time Seen by Provider: 06/18/20 06:29 Source: patient Mode of arrival: ambulatory Limitations: no limitations History of Present Illness Maximum Pain Intensity: 2 This patient comes in complaining of right flank pain. He does have a history of kidney stones. It started 10 years ago but had not had problems about a mo nth ago. He has seen Dr. Carlson had a stent placed he also had an infection and then subsequently had lithotripsy about 10 days ago. The scan is scheduled to be removed on Thursday. This past Thursday started having sensitive skin a headache and aches and right flank pain has had some chills but no fever. He took 1 dose of amoxicillin yesterday. He said dysuria and frequency for about a month. No fall or trauma no numbness weakness in his legs. No exposure to Covid. no Covid vaccine. His last urine culture did show Enterococcus which had multiple resistances. Home Medications Medication Instructions Recorded Confirmed Type tamsulosin 0.4 mg PO QAM #30 cap 05/23/20 06/18/20 Rx acetaminophen 650 mg PO Q6H PRN #15 tab 06/01/20 06/18/20 Rx phenazopyridine [Pyridium] 200 mg PO Q8H PRN #10 tab 06/08/20 06/18/20 Rx Allergies Allergy/AdvReac Type Severity Reaction Status Date / Time No Known Allergies Allergy Verified 06/18/20 06:04 Past Med/Surg History Medical History History of nephrolithiasis Kidney stones Ureterolithiasis UTI (urinary tract infection) Surgical History History of colonoscopy History of left inguinal hernia repair History of tonsillectomy Hx of LASIK [place] teeth removed Family History Grandmother (Maternal) Family hx of colon cancer Other No family history of adverse response to anesthesia Social History Smoking Status: Current some day smoker Cigarettes Per Day: 2/year; Second Hand Exposure: No; Hx Alcohol Use: Yes Alcohol type: beer and hard liquor Hx Substance Use: No Preferred Language: Tam[place] Communication Ability: Effective 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: No Beliefs That Will Affect Care: None marital status: Current Living Situation: Spouse current occupational status: employed 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 Other Information That Helps Us Care for You: No Feels Safe at Home: Yes Safety Concerns: Feels Safe At This Time Assistive Devices: None Review of Systems A total of 10 systems reviewed and were otherwise negative Physical Exam Vital Signs Vital Signs - 24 hr 06/18/20 05:49 06/18/20 07:41 06/18/20 07:49 Temperature 36.4 C L Temperature Source Temporal Artery Scan Pulse Rate 102 H 66 68 Respiratory Rate 18 20 20 Respiratory Effort / Characteristics Non-Labored Spontaneous Respiratory Depth Normal Blood Pressure 110/77 119/63 Blood Pressure Mean 88 81 Blood Pressure Position Sitting Pulse Oximetry 96 Oxygen Delivery Method Room Air Sepsis Recent Fever Within 48 Hours Yes Sepsis New/Unexplained Change in Mental Status No Sepsis Action Taken by Nursing No Action Required General: Well developed well nourished in no acute distress, breathing comfortably on room air. Normal speech HEENT: Normal cephalic atraumatic. Pupils are equal round and reactive to light. Extraocular movements are intact. Oropharynx is pink with moist mucous membranes. No swelling of the mouth lips or tongue. Neck: Supple with a midline trachea. No meningeal signs or stiffness, no JVD or bruits. No Stridor. Chest: Clear to auscultation bilaterally. No wheezes or rhonchi. No increased work of breathing. Heart: Regular rate and rhythm without murmurs or gallops. Abdomen: Soft nontender, nondistended without rebound guarding or rigidity. Extremities: No cyanosis clubbing or edema. No calf tenderness or assymetry Spine/Back. Non tender to palpation. No CVA tenderness Skin: Good turgor without rashes. Neurologic exam: Cranial nerves two through 12 are intact. Motor and sensation are intact and symmetrical throughout. Course Administered Medications Discontinued Medications Sodium Chloride (Nss) 500 mls @ 999 mls/hr IV .Q31M STA Stop: 06/18/20 06:26 Last Infusion: 06/18/20 07:18 Dose: 0 mls/hr Documented by: [id number] Admin: 06/18/20 06:09 Dose: 999 mls/hr Documented by: [id number] Piperacillin Sod/Tazobactam Sod (Zosyn) 4.5 gm in 120 mls @ 240 mls/hr IV NOW ONE Stop: 06/18/20 07:09 Last Infusion: 06/18/20 07:48 Dose: 0 mls/hr Documented by: [id number] Admin: 06/18/20 06:40 Dose: 240 mls/hr Documented by: [id number] Sodium Chloride (Nss 1000ml) 1,000 mls @ 999 mls/hr IV .Q1H1M ONE Stop: 06/18/20 08:49 Last Admin: 06/18/20 07:59 Dose: 999 mls/hr Documented by: [id number] Morphine Sulfate (Morphine Sulfate 4 Mg/Ml 1 Ml Carp\Vial) 4 mg IV NOW STA Stop: 06/18/20 05:57 Last Admin: 06/18/20 06:09 Dose: 4 mg Documented by: [id number] Morphine Sulfate (Morphine Sulfate 4 Mg/Ml 1 Ml Carp\Vial) 4 mg IV NOW STA Stop: 06/18/20 07:43 Last Admin: 06/18/20 07:48 Dose: 4 mg Documented by: [id number] Ondansetron HCl (Ondansetron Inj 2 Mg/Ml 2 Ml Vial) 4 mg IV NOW STA Stop: 06/18/20 05:57 Last Admin: 06/18/20 06:09 Dose: 4 mg Documented by: [id number] Medical Decision Making Differential Diagnosis Kidney stone, kidney infection, sepsis, pyelonephritis, electrolyte or metabolic abnormality Medical Records Attestation: I reviewed the patient's medical records. Home Medications Current Medication List: was personally reviewed by me Laboratory Data Attestation: I reviewed the patient's lab results. Result diagrams: 06/18/20 06:13 06/18/20 06:13 Lab Results 06/18/20 06/18/20 06/18/20 Range/Units 06:13 06:13 06:15 WBC 18.71 H (4.8-10.8) K/uL RBC 4.67 L (4.7-6.1) M/uL Hgb 15.2 (14.0-18.0) g/dL Hct 42.5 (42-52) % MCV 91.0 (80-100) fL MCH 32.5 (25-34) pg MCHC 35.8 (32-36) g/dL RDW Std Deviation 40.5 (36.4-46.3) fL RDW Coeff of Geraldine 12.1 (11.5-14.5) % Plt Count 260 (130-400) K/uL MPV 10.4 (7.4-10.4) fL Sodium 136 (136-145) mmol/L Potassium 4.2 (3.5-5.1) mmol/L Chloride 107 (98-107) mmol/L Carbon Dioxide 20 L (21-32) mmol/L Anion Gap 9.0 (3-11) BUN 10 (7-18) mg/dl Creatinine 1.19 (0.6-1.4) mg/dl Est Cr Clr Drug Dosing 77.0 ml/min Est GFR ( Amer) 79.2 Est GFR (Non-Af Amer) 68.4 BUN/Creatinine Ratio 8.4 L (10-20) Glucose 127 H (70-99) mg/dl Lactate (0.4-2.0) mmol/L Calcium 10.2 H (8.5-10.1) mg/dl Total Bilirubin 1.5 H (0.2-1) mg/dl AST 9 L (15-37) U/L ALT 21 (12-78) U/L Alkaline Phosphatase 100 (45-117) U/L Total Protein 7.5 (6.4-8.2) gm/dl Albumin 3.6 (3.4-5.0) gm/dl Globulin 3.9 (2.5-4.0) gm/dl Albumin/Globulin Ratio 0.9 (0.9-2) Urine Color [place] Urine Appearance Turbid A (Clear) Urine pH 6.5 (4.5-7.5) Ur Specific [place] 1.019 (1.000-1.030) Urine Protein 3+ H (Negative) Urine Glucose (UA) Negative (Negative) Urine Ketones Trace H (Negative) Urine Blood 3+ H (Negative) Urine Nitrite Positive A (Negative) Urine Bilirubin 1+ H (Negative) Urine Urobilinogen Negative (Negative) Ur Leukocyte Esterase 2+ H (Negative) Urine WBC (Auto) >30 H (0-5) /hpf Urine RBC (Auto) >30 H (0-4) /hpf U Hyaline Cast (Auto) 0 (0-5) /lpf U Epithel Cells (Auto) 20-30 H (0-5) /lpf Urine Bacteria (Auto) Negative (Negative) COVID-19 Eval Order SARS-CoV-2, RNA, NAAT (NEGATIVE) 06/18/20 06/18/20 06/18/20 Range/Units 07:05 07:05 07:47 WBC (4.8-10.8) K/uL RBC (4.7-6.1) M/uL Hgb (14.0-18.0) g/dL Hct (42-52) % MCV (80-100) fL MCH (25-34) pg MCHC (32-36) g/dL RDW Std Deviation (36.4-46.3) fL RDW Coeff of Geraldine (11.5-14.5) % Plt Count (130-400) K/uL MPV (7.4-10.4) fL Sodium (136-145) mmol/L Potassium (3.5-5.1) mmol/L Chloride (98-107) mmol/L Carbon Dioxide (21-32) mmol/L Anion Gap (3-11) BUN (7-18) mg/dl Creatinine (0.6-1.4) mg/dl Est Cr Clr Drug Dosing ml/min Est GFR ( Amer) Est GFR (Non-Af Amer) BUN/Creatinine Ratio (10-20) Glucose (70-99) mg/dl Lactate 0.9 (0.4-2.0) mmol/L Calcium (8.5-10.1) mg/dl Total Bilirubin (0.2-1) mg/dl AST (15-37) U/L ALT (12-78) U/L Alkaline Phosphatase (45-117) U/L Total Protein (6.4-8.2) gm/dl Albumin (3.4-5.0) gm/dl Globulin (2.5-4.0) gm/dl Albumin/Globulin Ratio (0.9-2) Urine Color Urine Appearance (Clear) Urine pH (4.5-7.5) Ur Specific [place] (1.000-1.030) Urine Protein (Negative) Urine Glucose (UA) (Negative) Urine Ketones (Negative) Urine Blood (Negative) Urine Nitrite (Negative) Urine Bilirubin (Negative) Urine Urobilinogen (Negative) Ur Leukocyte Esterase (Negative) Urine WBC (Auto) (0-5) /hpf Urine RBC (Auto) (0-4) /hpf U Hyaline Cast (Auto) (0-5) /lpf U Epithel Cells (Auto) (0-5) /lpf Urine Bacteria (Auto) (Negative) COVID-19 Eval Order Covid19 [facility] SARS-CoV-2, RNA, NAAT NEGATIVE (NEGATIVE) Imaging Data Radiologist's Impression: RENAL ULTRASOUND HISTORY: Right flank pain. COMPARISON: Abdomen and pelvis CT 05/22/2020. FINDINGS: Right kidney: 11.5 cm. There is a 1.9 cm parapelvic cyst. An indwelling stent is noted. No hydronephrosis. Normal corticomedullary differentiation and cortical thickness. Left kidney: 10.9 cm. No hydronephrosis. There are few punctate stones within the left kidney. Normal corticomedullary differentiation and cortical thickness. Bladder: No bladder wall thickening. The bilateral ureteral jets were not identified. IMPRESSION: 1. No hydronephrosis. There is a right-sided ureteral stent which is likely in good position. 2. Left-sided nephrolithiasis. KUB HISTORY: left flank pain COMPARISON: None. FINDINGS: The bowel gas pattern is unremarkable. There are no dilated loops of small bowel to suggest an obstruction. There is a right ureteral stent which is likely in good position. No right renal calculi. There are multiple left renal stones again noted. There is a partially fragmented 5 mm calcification within the right deep pelvis overlying the distal portion of the stent. This likely represents the previously identified ureteral stone and could reside within the ureterovesical junction or bladder. No pneumoperitoneum or pneumatosis. IMPRESSION: There is a partially fragmented 5 mm calcification within the right deep pelvis overlying the distal portion of the stent. This likely represents the previously identified ureteral stone and could reside within the ureterovesical junction or bladder. MDM Narrative This patient comes in as described above. He has a history of kidney stones. He is having flank pain. He does have a stent in place. IV access was established to be given IV morphine seems comfortable. His vital signs are stable however I am concerned he does have urinary discomfort and his urine appears infected he has a white count 18,000. He was given Zosyn 4.5 g IV after looking at his sensitivities of his last urine culture which grew out Enterococcus. I did also order a KUB and ultrasound. Blood cultures and lactic acid were also ordered. Ultrasound does not show any evidence of obstruction. Stent is in place. I did discuss this with Sara, the urology CLOCK MECHANIC. She agrees with IV antibiotics and will discuss the case with Dr. Nichole as well. I did discuss the case with Dr. Serafin Arthur, the [facility] hospitalist, and he will admit the patient for IV antibiotics further treatment and evaluation. The patient was given a second liter IV normal saline bolus. Admission Covid testing was negative. Impression & Plan Acute pyelonephritis, History of renal stent, Acute right flank pain, COVID-19 ruled out by laboratory testing Discharge Plan Visit Data Chief Complaint: Kidney Stone Stated Complaint: KIDNEY STONES ED Provider: Nader Briones Discharge Problem: Acute pyelonephritis, History of renal stent, Acute right flank pain, COVID-19 ruled out by laboratory testing Patient Disposition: Admitted As Inpatient Discharge Instructions Interventions: ED Discharge Assessment Last Done: 06/18/20 08:15
[2020-06-18 06:47] LABS: Albumin Globulin Ratio 0.9 (0.9-2); Bilirubin,Total 1.5 mg/dl (0.2-1); Globulin 3.9 gm/dl (2.5-4.0); Total Protein 7.5 gm/dl (6.4-8.2)
[2020-06-18] MEDS ORDERED: SODIUM CHLORIDE 0.9% 1000ML 1,000 ML IV ONE (07:49)
--- NOTE | 2020-06-18 07:52 | Ultrasound Report ---
RENAL ULTRASOUND HISTORY: Right flank pain. COMPARISON: Abdomen and pelvis CT 05/22/2020. FINDINGS: Right kidney: 11.5 cm. There is a 1.9 cm parapelvic cyst. An indwelling stent is noted. No hydronephr osis. Normal corticomedullary differentiation and cortical thickness. Left kidney: 10.9 cm. No hydronephrosis. There are few punctate stones within the left kidney. Normal corticomedullary differentiation and cortical thickness. Bladder: No bladder wall thickening. The bilateral ureteral jets were not identified. IMPRESSION: 1. No hydronephrosis. There is a right-sided ureteral stent which is likely in good position. 2. Left-sided nephrolithiasis. ACT 112: Negative or not required by law. Electronically signed by: Tushar Rebolledo M.D. 06/18/2020 7:51 AM
--- NOTE | 2020-06-18 07:54 | XRay Report ---
KUB HISTORY: left flank pain COMPARISON: None. FINDINGS: The bowel gas pattern is unremarkable. There are no dilated loops of small bowel to suggest an obstruction. There is a right ureteral stent which is likely in good position. No right renal ca lculi. There are multiple left renal stones again noted. There is a partially fragmented 5 mm calcifi cation within the right deep pelvis overlying the distal portion of the stent. This likely represents the previously identified ureteral stone and could reside within the ureterovesical junction or blad shakira. No pneumoperitoneum or pneumatosis. IMPRESSION: There is a partially fragmented 5 mm calcification within the right deep pelvis overlying the distal portion of the stent. This likely represents the previously identified ureteral stone and could resid e within the ureterovesical junction or bladder. ACT 112: Negative or not required by law. Electronically signed by: Tushar Rebolledo M.D. 06/18/2020 7:53 AM
[2020-06-18] MEDS ORDERED: ONDANSETRON INJ 2 MG/ML 2 ML VIAL IV PRN (08:41)
[2020-06-18] MEDS ORDERED: PHENAZOPYRIDINE HCL 200 MG TAB PO PRN (08:41)
[2020-06-18] MEDS ORDERED: ACETAMINOPHEN 325 MG TAB PO PRN (08:41)
[2020-06-18] MEDS: ENOXAPARIN INJ 40 MG/0.4 ML SYR SQ SCH (09:44)
[2020-06-18] MEDS: TAMSULOSIN HCL 0.4 MG CAP PO SCH (09:45)
--- NOTE | 2020-06-18 10:23 | Urology Consultation ---
Date of Consultation June 18, 2020 Assessment & Plan (1) Acute right flank pain: (2) Acute UTI (urinary tract infection): (3) S/P ureteral stent placement: 54 year-old male patient, with known history of stones, admitted with bilateral flank pain, chills, and suspected UTI. -Status post right ureteral stent placement on 05/23/20 with subsequent right ESWL 06/08/20 secondary to 6 mm right proximal ureteral stone. -Plan of care reviewed with Dr. Butcher. -Patient currently afebrile. -Labs reviewed - white count elevated, increase in creatinine stable. -Imaging reviewed - satisfactory positioning of the right ureteral stent with fragmented distal right ureteral calculi, at UVJ versus bladder. -Urine suspicious for infection, urine culture pending. -Blood cultures pending. -Continue broad spectrum antibiotic therapy, await culture results. -Continue supportive care, hydration, and pain control. -Strain urine to assess for further stone passage given location of fragments. -No acute intervention indicated at this time. -Will continue to follow while inpatient. History of Present Illness Reason for Consultation: Recurrent UTI, stones, ureteral stent Attending Physician: Serafin Arthur DO History of Present Illness 54 year-old male patient, with history of kidney stones recently s/p right ESWL 06/08/20, presented to the emergency room this morning with complaints of chills, bilateral flank pain, and fatigue. Patient with recent hospital admission 05/22-05/23 secondary to obstructing 6 mm right proximal ureteral calculus. He underwent emergent cystoscopy, right ureteral stent placement with Dr. Carlson on 05/23/20. He then was readmitted 05/31-06/01 secondary to right-sided pyelonephritis and complicated UTI. Urine culture at that time was positive for Enterococcus. He was discharged home with 14 day course of Amoxicillin. Patient then underwent right-sided ESWL 06/08/[address] Cope. He was discharged home after the procedure with Ciprofloxacin and was told to continue his Amoxicillin. He was doing well post procedure, until Thursday morning when he developed sudden onset of chills and sensitive skin, similar to his past symptoms of UTI. Denied fever. Noted bilateral flank pain, right worse than left. Symptoms continued which prompted him to come to ER today in which he was subsequently admitted for further evaluation and treatment. Urology consulted for UTI, stones, and ureteral stent. Patient known to [facility] urology service, as above. Chart review: Afebrile Wbc 18.71 Hgb 15.2 Creatinine 1.19 Urinalysis turbid in appearance, nitrate positive, +2 leukocytes, >30 wbc, >30 rbc, negative bacteria. Urine culture pending. Blood cultures pending. Patient started on IV Zosyn. Imaging - KUB 06/18/20 - Partially fragmented 5 mm calcification within the right deep pelvis overlying the distal portion of the stent. This likely represents the previously identified ureteral stone and could reside within the ureterovesical junction or bladder. Renal ultrasound 06/18/20 - No hydronephrosis. There is a right-sided ureteral stent which is likely in good position. Left-sided nephrolithiasis. Patient examined at bedside, awake, alert and appears comfortable. States he continues to experience intermittent chills. Denies fever. Notes continued dysuria, has been present since recent ESWL. Denies hematuria. Denies Urinary frequency/urgency. States his bilateral flank pain has improved with PRN pain medication. His right-sided flank pain was severe over the weekend. Now rates pain 2 out of 10. Did have associated nausea this past weekend, denies vomiting. Currently denies nausea. Reports intermittent dizziness. Did pass several small fragments since ESWL. Does have upcoming appointment with urology service for stent removal on 06/22/20. Denies additional urologic concerns today. Allergies Allergy/AdvReac Type Severity Reaction Status Date / Time No Known Allergies Allergy Verified 06/18/20 06:04 Home Medications Medication Instructions Recorded Confirmed Type tamsulosin 0.4 mg PO QAM #30 cap 05/23/20 06/18/20 Rx acetaminophen 650 mg PO Q6H PRN #15 tab 06/01/20 06/18/20 Rx phenazopyridine [Pyridium] 200 mg PO Q8H PRN #10 tab 06/08/20 06/18/20 Rx Patient History Medical History History of nephrolithiasis Kidney stones Ureterolithiasis UTI (urinary tract infection) Surgical History History of colonoscopy History of left inguinal hernia repair History of tonsillectomy Hx of VITO [place] teeth removed Family History Grandmother (Maternal) Family hx of colon cancer Other No family history of adverse response to anesthesia Social History Smoking Status: Current some day smoker Cigarettes Per Day: 2/year; Second Hand Exposure: No; Hx Alcohol Use: Yes Alcohol type: beer and hard liquor Hx Substance Use: No Preferred Language: Bangladeshi Communication Ability: Effective General Farm Hand Required: No Beliefs That Will Affect Care: None marital status: Current Living Situation: Spouse current occupational status: employed 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 Feels Safe at Home: Yes Assistive Devices: None Review of Systems Constitutional: as per Subjective / HPI and + chills; no fever Eyes: no problem reported Ear, Nose, Mouth, Throat: as per Subjective / HPI and + dizziness Respiratory: no cough and no dyspnea Cardiovascular: no chest pain and no edema Gastrointestinal: as per Subjective / HPI Genitourinary: + as per Subjective / HPI Musculoskeletal: as per Subjective / HPI Neurologic: as per Subjective / HPI and + dizziness Endocrine: no fatigue Hematologic / Lymphatic: no easy bleeding and no easy bruising Physical Exam Constitutional: well developed, well nourished and comfortable; no acute distress and not ill appearing ENMT: Ears: no external ear abnormality Nose: no external nose abnormality Neck: normal visual inspection and trachea midline Respiratory: normal respiratory effort and able to speak in complete sentences; no respiratory distress and no audible wheezes Cardiovascular: Extremities: no calf tenderness and no edema Gastrointestinal (Abdomen): Inspection/Auscultation: abdomen normal to inspection; abdomen not distended Percussion/Palpation: + abdomen tender (Mild diffuse tenderness to abdomen) and abdomen soft; no guarding Musculoskeletal: Moves all extremities without difficulty. Skin: No visible rashes, lesions, or wounds noted. Neurologic: moves all extremities and awake Psychiatric: Orientation: alert, oriented x 3 and cooperative Affect: euthymic affect Genitourinary: no CVA tenderness Results & Data ([facility]) Vital Signs (Past 12 Hours) Vital Signs Temp Pulse Pulse Resp BP BP Pulse Ox 06/18/20 08:42 37.2 C 61 16 117/72 94 06/18/20 08:41 37.2 C 61 16 117/72 95 06/18/20 08:01 67 20 93 06/18/20 08:00 64 17 114/66 93 06/18/20 07:49 68 20 06/18/20 07:41 66 20 119/63 06/18/20 05:49 36.4 C L 102 H 18 110/77 96 PG Care Time/CCT Total # of Minutes Spent Total Time Spent with Patient: Total time spent is greater than 50% in coordi nation of care (as documented) at patient's floor/unit and/or counseling patient: Coding Level of Care Code 62941 Initial Inpt Care Lvl 3 Diagnoses Acute right flank pain R10.9 Acute UTI (urinary tract infection) N39.0 S/P ureteral stent placement Z96.0
--- NOTE | 2020-06-18 11:18 | History & Physical Report ---
Date of Service June 18, 2020 Assessment & Plan (1) UTI (urinary tract infection): UA grossly abnormal, > 30 WBC WBC is 18k on CBC no fever but has symptoms of dysuria, flank pain, no obvious pyelonephritis on imaging will treat with Zosyn IV as prior urine culture with Enterococcus that was sensitive to PCN follow up final blood and urine cultures follow up urology recommendations for management of ureteral stent he can eat, no plans for procedure today (2) History of renal stent: defer to urology on management of this (3) Acute right flank pain: no obvious evidence of pyelonephrtitis of note, he completed 14 days total treatment last time, completed Amoxicillin on 06/13/20 Admission and Anticipated Discharge Date Admission Date: June 18, 2020 History of Present Illness Chief Complaint: I felt like I was getting a UTI Primary Care Provider: Nader Blue 54 yo male with recent history of right sided ureteral stones with complicated UTI, urine culture grew out Enterococcus sensitive to PCN. He was treated in the hospital with ureteral stent on right and then followed up with lithotripsy as outpatient. He was discharged from [facility] on 06/01 and completed 12 more days of Amoxicillin, last day would have been 06/13/20. He was doing well until a few days ago when he started to notice feelings of malaise, poor appetite, tingling skin and some urinary symptoms of pain, distension, back pain. He has not had a true fever. Mild nausea but he has not thrown up. He had a normal BM yesterday, again his appetite has been poor. He presented to the ED this morning because he had concerns for recurrent UTI and he did not want the infection to go to his kidneys. WBC was 18k, Cr and electrolytes stable. KUB with right ureteral stent in good position, some stone fragments at ureteropelvic junction, no hydronephrosis on renal US. Given IV fluids and Zosyn in the ED, asked for admission. Urology consult obtained. Allergies Allergy/AdvReac Type Severity Reaction Status Date / Time No Known Allergies Allergy Verified 06/18/20 06:04 Home Medications Medication Instructions Recorded Confirmed Type tamsulosin 0.4 mg PO QAM #30 cap 05/23/20 06/18/20 Rx acetaminophen 650 mg PO Q6H PRN #15 tab 06/01/20 06/18/20 Rx phenazopyridine [Pyridium] 200 mg PO Q8H PRN #10 tab 06/08/20 06/18/20 Rx Past Med/Surg History Medical History History of nephrolithiasis Kidney stones Ureterolithiasis UTI (urinary tract infection) Surgical History History of colonoscopy History of left inguinal hernia repair History of tonsillectomy Hx of LASIK [place] teeth removed Family History Grandmother (Maternal) Family hx of colon cancer Other No family history of adverse response to anesthesia Social History Smoking Status: Current some day smoker Cigarettes Per Day: 2/year; Second Hand Exposure: No; Hx Alcohol Use: Yes Alcohol type: beer and hard liquor Hx Substance Use: No Preferred Language: Norwegian Communication Ability: Effective 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 Beliefs That Will Affect Care: None marital status: Current Living Situation: Spouse current occupational status: employed current occupation: [employer] Other Information That Helps Us Care for You: No Feels Safe at Home: Yes Safety Concerns: Feels Safe At This Time Assistive Devices: None Review of Systems Review of Systems: All systems reviewed & are unremarkable except as noted in HPI & below Constitutional: + fatigue, + malaise and + weakness; no fever, no chills and no sweats Respiratory: no cough and no dyspnea Cardiovascular: no chest pain, no palpitations, no syncope and no edema Gastrointestinal: + early satiety and + nausea; no abdominal pain, no vomiting, no constipation and no diarrhea/loose stools Genitourinary: + dysuria, + difficulty urinating, + urinary frequency and + flank pain; no hematuria Physical Exam Constitutional: WD/WN, vitals as above Eyes: PERRL, conjunctivae normal, anicteric sclerae ENMT: external ear and nose normal, oropharynx normal Neck: trachea midline, no thyromegaly Respiratory: normal respiratory effort, lungs clear to auscultation Cardiovascular: RRR, no murmur, no edema Gastrointestinal (Abdomen): normal bowel sounds, soft, nontender, no hepatosplenomegaly Musculoskeletal: no cyanosis or clubbing, extremities motor strength 5/5 Skin: no rashes, warm and dry Neurologic: patellar DTR's 2+ bilat, sensation intact and PERRL, EOMI, accommodation nl, no face palsy, no dysarthria Psychiatric: A+Ox3, euthymic affect Lymphatic: no cervical or axillary lymphadenopathy Results & Data Results & Data ([facility]) Vital Signs (Past 12 Hours) Vital Signs Temp Pulse Pulse Resp BP BP Pulse Ox 06/18/20 11:16 36.8 C 70 18 107/70 99 06/18/20 08:42 37.2 C 61 16 117/72 94 06/18/20 08:41 37.2 C 61 16 117/72 95 06/18/20 08:01 67 20 93 06/18/20 08:00 64 17 114/66 93 06/18/20 07:49 68 20 06/18/20 07:41 66 20 119/63 06/18/20 05:49 36.4 C L 102 H 18 110/77 96 Laboratory Results Laboratory Results - last 24 hr 06/18/20 06/18/20 06/18/20 06:13 06:13 06:15 WBC 18.71 H RBC 4.67 L Hgb 15.2 Hct 42.5 MCV 91.0 MCH 32.5 MCHC 35.8 RDW Std Deviation 40.5 RDW Coeff of Geraldine 12.1 Plt Count 260 MPV 10.4 Sodium 136 Potassium 4.2 Chloride 107 Carbon Dioxide 20 L Anion Gap 9.0 BUN 10 Creatinine 1.19 Est Cr Clr Drug Dosing 77.0 Est GFR ( Amer) 79.2 Est GFR (Non-Af Amer) 68.4 BUN/Creatinine Ratio 8.4 L Glucose 127 H Lactate Calcium 10.2 H Total Bilirubin 1.5 H AST 9 L ALT 21 Alkaline Phosphatase 100 Total Protein 7.5 Albumin 3.6 Globulin 3.9 Albumin/Globulin Ratio 0.9 Urine Color [place] Urine Appearance Turbid A Urine pH 6.5 Ur Specific [place] 1.019 Urine Protein 3+ H Urine Glucose (UA) Negative Urine Ketones Trace H Urine Blood 3+ H Urine Nitrite Positive A Urine Bilirubin 1+ H Urine Urobilinogen Negative Ur Leukocyte Esterase 2+ H Urine WBC (Auto) >30 H Urine RBC (Auto) >30 H U Hyaline Cast (Auto) 0 U Epithel Cells (Auto) 20-30 H Urine Bacteria (Auto) Negative COVID-19 Eval Order SARS-CoV-2, RNA, NAAT 06/18/20 06/18/20 06/18/20 07:05 07:05 07:47 WBC RBC Hgb Hct MCV MCH MCHC RDW Std Deviation RDW Coeff of Geraldine Plt Count MPV Sodium Potassium Chloride Carbon Dioxide Anion Gap BUN Creatinine Est Cr Clr Drug Dosing Est GFR ( Amer) Est GFR (Non-Af Amer) BUN/Creatinine Ratio Glucose Lactate 0.9 Calcium Total Bilirubin AST ALT Alkaline Phosphatase Total Protein Albumin Globulin Albumin/Globulin Ratio Urine Color Urine Appearance Urine pH Ur Specific [place] Urine Protein Urine Glucose (UA) Urine Ketones Urine Blood Urine Nitrite Urine Bilirubin Urine Urobilinogen Ur Leukocyte Esterase Urine WBC (Auto) Urine RBC (Auto) U Hyaline Cast (Auto) U Epithel Cells (Auto) Urine Bacteria (Auto) COVID-19 Eval [facility] SARS-CoV-2, RNA, NAAT NEGATIVE Diagnostic Findings KUB IMPRESSION: There is a partially fragmented 5 mm calcification within the right deep pelvis overlying the distal portion of the stent. This likely represents the previously identified ureteral stone and could reside within the ureterovesical junction or bladder. RENAL ULTRASOUND IMPRESSION: 1. No hydronephrosis. There is a right-sided ureteral stent which is likely in good position. 2. Left-sided nephrolithiasis. Code Status & VTE Plan VTE Prophylaxis Plan VTE Prophylaxis will be ordered: Yes PG Care Time/CCT Total # of Minutes Spent Total Time Spent with Patient: Total time spent is greater than 50% in coordination of care (as documented) at patient's floor/unit and/or counseling patient: Coding Level of Care Code 69217 Initial Inpt Care Lvl 2 Diagnoses UTI (urinary tract infection) N39.0 History of renal stent Acute right flank pain R10.9
[2020-06-18] MEDS: PIPERACILLIN/TAZOBACTAM 3.375 GM in DEXTROSE 5% 100 ML IV SCH ×2 (11:34→19:12)
[2020-06-18] MEDS ORDERED: KETOROLAC TROMETHAMINE 15 MG/ML VIAL IV PRN (12:14)
[2020-06-18] MEDS: SODIUM CHLORIDE 0.9% 1000ML 1,000 ML IV SCH ×2 (12:17→19:12)
[2020-06-18] MEDS: traMADol HCL 50 MG TABLET PO PRN ×2 (15:55→21:59)
[2020-06-19] MEDS: PIPERACILLIN/TAZOBACTAM 3.375 GM in DEXTROSE 5% 100 ML IV SCH ×3 (03:16→20:18)
[2020-06-19] MEDS: SODIUM CHLORIDE 0.9% 1000ML 1,000 ML IV SCH ×2 (03:16→10:36)
[2020-06-19 06:21] LABS: Basophils # (auto) 0.03 K/uL (0-0.2); Basophils % (auto) 0.3 %; Eosinophils # (auto) 0.14 K/uL (0-0.5); Eosinophils % (auto) 1.2 %; Hematocrit (blood only) 37.6 % (42-52); Hemoglobin 13.1 g/dL (14.0-18.0); Immature Granulocytes # (auto) 0.02 K/uL (0.00-0.02); Immature Granulocytes % (auto) 0.2 %; Lymphocytes % (auto) 17.6 %; Mean Corpuscular Hemoglobin 31.9 pg (25-34); Mean Corpuscular Hgb Conc 34.8 g/dL (32-36); Mean Corpuscular Volume 91.5 fL (80-100); Mean Platelet Volume 9.9 fL (7.4-10.4); Monocytes # (auto) 1.75 K/uL (0.11-0.59); Monocytes % (auto) 15.4 %; Neutrophils # (auto) 7.44 K/uL (1.4-6.5); Neutrophils % (auto) 65.3 %; Platelet Count 187 K/uL (130-400); RDW Standard Deviation 40.6 fL (36.4-46.3); Red Blood Count 4.11 M/uL (4.7-6.1); White Blood Count 11.38 K/uL (4.8-10.8)
[2020-06-19 07:08] LABS: BUN Creatinine Ratio 9.6 (10-20); Calcium 9.5 mg/dl (8.5-10.1); Creatinine Clr Calc Pharmacy 100.7 ml/min; Est GFR (African American) 109.6; Est GFR (Non-African American) 94.5; Potassium 3.9 mmol/L (3.5-5.1)
--- NOTE | 2020-06-19 08:06 | Urology Progress Note ---
Date of Service June 19, 2020 Assessment & Plan (1) Acute right flank pain: (2) Acute UTI (urinary tract infection): (3) S/P ureteral stent placement: 54 year-old male patient, with known history of stones, admitted with bilateral flank pain, chills, and suspected UTI. -Status post right ureteral stent placement on 05/23/20 with subsequent right ESWL 06/08/20 secondary to 6 mm right proximal ureteral stone. -Patient clinically progressing as expected. -Febrile last evening, now afebrile. -Labs reviewed - white count and creatinine improving. -Imaging reviewed - satisfactory positioning of the right ureteral stent with distal stone fragments. -Urine suspicious for infection, urine culture pending. -Blood cultures pending. -Continue broad spectrum antibiotic therapy, await culture results. -Continue supportive care, hydration, and pain control. -Strain urine to assess for further stone passage given location of fragments. -Recommend at least 10-14 days antibiotic therapy pending cultures. -No acute intervention indicated at this time. -Will continue to follow while inpatient. Admission and Anticipated Discharge Date Admission Date: June 18, 2020 Subjective Patient examined at bedside, awake and comfortable. Reports he is feeling much better overall. No longer having chills. Did have elevated temperature of 38.2 last evening, now afebrile. Denies nausea or vomiting. Reports dysuria has resolved. Denies hematuria, frequency, or urgency. Currently denies pain. Overall, feeling much improved. Chart review: Tmax over the past 24 hours 38.2. Afebrile this morning. Wbc 11.38 (previously 18.71) Hgb 13.1 Creatinine 0.91 Urine culture pending. Blood cultures pending. Patient currently on IV Zosyn. Denies additional urologic concerns today. Review of Systems Constitutional: as per Subjective / HPI; no chills Gastrointestinal: as per Subjective / HPI; no nausea and no vomiting Genitourinary: + as per Subjective / HPI Physical Exam Constitutional: well developed and well nourished; no acute distress and not ill appearing Respiratory: normal respiratory effort and able to speak in complete sentences; no respiratory distress and no audible wheezes Gastrointestinal (Abdomen): Inspection/Auscultation: abdomen normal to inspection; abdomen not distended Percussion/Palpation: abdomen soft; abdomen nontender and no guarding Psychiatric: Orientation: alert, oriented x 3 and cooperative Affect: euthymic affect Genitourinary: no CVA tenderness Results & Data ([facility]) Vital Signs (Past 12 Hours) Vital Signs Temp Pulse Resp BP Pulse Ox 06/19/20 07:38 37.2 C 73 16 127/81 96 06/19/20 00:51 36.6 C 06/18/20 23:46 38.2 C H 67 20 135/78 95 PG Care Time/CCT Total # of Minutes Spent Total Time Spent with Patient: Total time spent is greater than 50% in coordination of care (as documented) at patient's floor/unit and/or counseling patient: Coding Level of Care Code 81725 Subseq Hosp Care Lvl 2 Diagnoses Acute right flank pain R10.9 Acute UTI (urinary tract infection) N39.0 S/P ureteral stent placement Z96.0
[2020-06-19] MEDS: TAMSULOSIN HCL 0.4 MG CAP PO SCH (08:46)
[2020-06-19] MEDS: ENOXAPARIN INJ 40 MG/0.4 ML SYR SQ SCH (08:46)
--- NOTE | 2020-06-19 10:52 | Hospitalist Progress Note ---
Date of Service June 19, 2020 Assessment & Plan (1) UTI (urinary tract infection): UA grossly abnormal, > 30 WBC WBC down to 11k from 18k stop IV fluids continue to treat with Zosyn IV as prior urine culture with Enterococcus that was sensitive to PCN urine culture with strep and staph species, anticipate final culture and sensitivity tomorrow no growth on blood cultures hold on stent removal for now, will f/u with urology they recommend 10-14 days total, including what he had here anticipate d/c to home tomorrow (2) History of renal stent: defer to urology on management of this will follow up in office (3) Acute right flank pain: no obvious evidence of pyelonephrtitis of note, he completed 14 days total treatment last time, completed Amoxicillin on 06/13/20 Admission and Anticipated Discharge Date Admission Date: June 18, 2020 Subjective patient feeling "100% better" today after antibiotics and fluids no fever, vitals stable, he is eating and drinking better WBC down to 11k from 18k, Cr and electrolytes stable urine culture growing staph and strep species, awaiting final results with sensitivity blood cultures show no growth anticipate him leaving tomorrow Review of Systems Review of Systems: All systems reviewed & are unremarkable except as noted in Subjective Constitutional: no fever, no chills, no sweats, no fatigue, no weakness and no anorexia Respiratory: no cough and no dyspnea Cardiovascular: no chest pain, no syncope and no edema Gastrointestinal: no abdominal pain, no nausea, no vomiting, no constipation and no diarrhea/loose stools Genitourinary: no dysuria, no difficulty urinating, no urinary frequency and no hematuria Physical Exam Constitutional: WD/WN, vitals as above Neck: trachea midline, no thyromegaly Respiratory: normal respiratory effort, lungs clear to auscultation Cardiovascular: RRR, no murmur, no edema Gastrointestinal (Abdomen): normal bowel sounds, soft, nontender, no hepatosplenomegaly Musculoskeletal: no cyanosis or clubbing, extremities motor strength 5/5 Skin: no rashes, warm and dry Neurologic: patellar DTR's 2+ bilat, sensation intact and PERRL, EOMI, accommodation nl, no face palsy, no dysarthria Psychiatric: A+Ox3, euthymic affect Lymphatic: no cervical or axillary lymphadenopathy Results & Data Results & Data ([facility]) Vital Signs (Past 12 Hours) Vital Signs Temp Pulse Resp BP Pulse Ox 06/19/20 07:38 37.2 C 73 16 127/81 96 06/19/20 00:51 36.6 C 06/18/20 23:46 38.2 C H 67 20 135/78 95 Laboratory Results Laboratory Results - last 24 hr 06/19/20 06/19/20 06:00 06:00 WBC 11.38 H RBC 4.11 L Hgb 13.1 L Hct 37.6 L MCV 91.5 MCH 31.9 MCHC 34.8 RDW Std Deviation 40.6 RDW Coeff of Geraldine 12.0 Plt Count 187 MPV 9.9 Immature Gran % (Auto) 0.2 Neut % (Auto) 65.3 Lymph % (Auto) 17.6 [place] % (Auto) 15.4 Eos % (Auto) 1.2 Baso % (Auto) 0.3 Neut # (Auto) 7.44 H Lymph # (Auto) 2.00 [place] # (Auto) 1.75 H Eos # (Auto) 0.14 Baso # (Auto) 0.03 Immature Gran # (Auto) 0.02 Sodium 137 Potassium 3.9 Chloride 108 H Carbon Dioxide 25 Anion Gap 4.0 BUN 9 Creatinine 0.91 Est Cr Clr Drug Dosing 100.7 Est GFR ( Amer) 109.6 Est GFR (Non-Af Amer) 94.5 BUN/Creatinine Ratio 9.6 L Glucose 102 H Calcium 9.5 Medications Administered Current Inpatient Medications Acetaminophen (Acetaminophen 325 Mg Tab) 650 mg PO Q4H PRN PRN Reason: pain/fever Stop: 07/18/20 08:40 Enoxaparin Sodium (Enoxaparin Inj 40 Mg/0.4 Ml Syr) 40 mg SQ Q24H BRIAN Stop: 07/18/20 08:40 Last Admin: 06/19/20 08:46 Dose: 40 mg Documented by: Piperacillin Sod/Tazobactam (Sod 3.375 gm/ Dextrose) 115 mls @ 28.75 mls/hr IV Q8H [facility]; Protocol Stop: 06/20/20 11:59 Last Infusion: 06/19/20 07:16 Dose: Infused Documented by: Sodium Chloride (Nss 1000ml) 1,000 mls @ 125 mls/hr IV .Q8H BRIAN Stop: 07/18/20 12:14 Last Admin: 06/19/20 10:36 Dose: 125 mls/hr Documented by: Ketorolac Tromethamine (Ketorolac Tromethamine 15 Mg/Ml Vial) 15 mg IV Q6H PRN PRN Reason: Pain Stop: 06/23/20 12:13 Miscellaneous Information (Piperacill/Tazobac Consult Active) 1 ea N/A UD PRN PRN Reason: Consult Stop: 07/18/20 06:39 Ondansetron HCl (Ondansetron Inj 2 Mg/Ml 2 Ml Vial) 4 mg IV Q6H PRN PRN Reason: Nausea Stop: 07/18/20 08:40 Phenazopyridine HCl (Phenazopyridine Hcl 200 Mg Tab) 200 mg PO Q8H PRN PRN Reason: pain Stop: 07/18/20 08:40 Last Admin: 06/18/20 09:45 Dose: 200 mg Documented by: Tamsulosin HCl (Tamsulosin Hcl 0.4 Mg Cap) 0.4 mg PO QAM [facility] Stop: 07/18/20 08:59 Last Admin: 06/19/20 08:46 Dose: 0.4 mg Documented by: Tramadol HCl (Tramadol Hcl 50 Mg Tablet) 50 mg PO Q4H PRN PRN Reason: Pain Stop: 07/18/20 12:13 Last Admin: 06/18/20 21:59 Dose: 50 mg Documented by: PG Care Time/CCT Total # of Minutes Spent Total Time Spent with Patient: Total time spent is greater than 50% in coordination of care (as documented) at patient's floor/unit and/or counseling patient: Coding Level of Care Code 06484 Subseq Hosp Care Lvl 2 Diagnoses UTI (urinary tract infection) N39.0 History of renal stent Acute right flank pain R10.9
[2020-06-20] MEDS: PIPERACILLIN/TAZOBACTAM 3.375 GM in DEXTROSE 5% 100 ML IV SCH (03:04)
[2020-06-20] MEDS: traMADol HCL 50 MG TABLET PO PRN (03:06)
[2020-06-20 06:55] LABS: Basophils # (auto) 0.02 K/uL (0-0.2); Basophils % (auto) 0.2 %; Eosinophils # (auto) 0.24 K/uL (0-0.5); Eosinophils % (auto) 2.7 %; Hematocrit (blood only) 39.9 % (42-52); Immature Granulocytes # (auto) 0.01 K/uL (0.00-0.02); Immature Granulocytes % (auto) 0.1 %; Lymphocytes # (auto) 2.76 K/uL (1.2-3.4); Lymphocytes % (auto) 31.5 %; Mean Corpuscular Hemoglobin 31.7 pg (25-34); Mean Corpuscular Hgb Conc 35.1 g/dL (32-36); Mean Corpuscular Volume 90.5 fL (80-100); Mean Platelet Volume 9.9 fL (7.4-10.4); Monocytes # (auto) 1.03 K/uL (0.11-0.59); Monocytes % (auto) 11.8 %; Neutrophils # (auto) 4.69 K/uL (1.4-6.5); Neutrophils % (auto) 53.7 %; Platelet Count 233 K/uL (130-400); Red Blood Count 4.41 M/uL (4.7-6.1); White Blood Count 8.75 K/uL (4.8-10.8)
--- NOTE | 2020-06-20 07:55 | Urology Progress Note ---
Date of Service June 20, 2020 Assessment & Plan (1) Acute right flank pain: (2) Acute UTI (urinary tract infection): (3) S/P ureteral stent placement: 54 year-old male patient, with known history of stones, admitted with bilateral flank pain, chills, and suspected UTI. -Status post right ureteral stent placement on 05/23/20 with subsequent right ESWL 06/08/20 secondary to 6 mm right proximal ureteral stone. -Patient clinically progressing as expected. -Remains afebrile. -Labs reviewed - white count now normal, creatinine pending. -Imaging reviewed - satisfactory positioning of the right ureteral stent with distal stone fragments. -He did pass larger fragment overnight, will check KUB this morning. -Preliminary urine culture Enterococcus and Coag neg Staph, continue antibiotic therapy. -Blood cultures no growth after 24 hours. -Continue broad spectrum antibiotic therapy, await culture results. -Continue supportive care, hydration, and pain control. -Strain urine. -Recommend at least 10-14 days antibiotic therapy pending cultures. -Outpatient follow-up with urology service for stent removal in place. -Will continue to follow while inpatient. Admission and Anticipated Discharge Date Admission Date: June 18, 2020 Subjective Patient examined at bedside, awake and comfortable. Continues to feel well. Did pass larger stone fragment overnight, kept with previously passed fragments. No significant pain with stone passage. Denies fevers or chills. Denies nausea or vomiting. Denies dysuria or hematuria. Notes some urinary frequency, denies urgency. Currently denies pain. Did have one dose of PO pain medication overnight. Overall, feeling much improved. Chart review: Afebrile. Wbc 8.75 (previously 11.38) Hgb 14.0 Creatinine pending. Preliminary urine culture 60,000 cfu Enterococcus, >100,000 coag negative staph. Preliminary blood cultures no growth after 24 hours. Patient currently on IV Zosyn. Denies additional urologic concerns today. Review of Systems Constitutional: as per Subjective / HPI; no fever and no chills Gastrointestinal: as per Subjective / HPI; no nausea and no vomiting Genitourinary: + as per Subjective / HPI Physical Exam Constitutional: well developed and well nourished; no acute distress and not ill appearing Respiratory: normal respiratory effort and able to speak in complete sentences; no respiratory distress and no audible wheezes Gastrointestinal (Abdomen): Inspection/Auscultation: abdomen normal to inspection; abdomen not distended Percussion/Palpation: abdomen soft; abdomen nontender and no guarding Psychiatric: Orientation: alert, oriented x 3 and cooperative Affect: euthymic affect Genitourinary: no CVA tenderness Results & Data ([facility]) Vital Signs (Past 12 Hours) Vital Signs Temp Pulse Resp BP Pulse Ox 06/20/20 07:00 36.5 C 54 L 18 128/64 99 06/19/20 23:48 36.9 C 70 18 114/71 98 PG Care Time/CCT Total # of Minutes Spent Total Time Spent with Patient: Total time spent is greater than 50% in coordination of care (as documented) at patient's floor/unit and/or counseling patient: Coding Level of Care Code 08454 Subseq Hosp Care Lvl 2 Diagnoses Acute right flank pain R10.9 Acute UTI (urinary tract infection) N39.0 S/P ureteral stent placement Z96.0
[2020-06-20] MEDS ORDERED: AMOXICILLIN/CLAVULANATE 875 MG TAB PO SCH (08:00)
[2020-06-20] MEDS: ENOXAPARIN INJ 40 MG/0.4 ML SYR SQ SCH (08:48)
[2020-06-20] MEDS: TAMSULOSIN HCL 0.4 MG CAP PO SCH (08:48)
--- NOTE | 2020-06-20 08:54 | XRay Report ---
KUB CLINICAL HISTORY: right distal calculi COMPARISON STUDY: CT of the abdomen and pelvis May 22, 2020. KUB June 18, 2020. FINDINGS: Right ureteral stent is in place. Multiple left renal calculi are unchanged. The suspected distal right ureteral calculus shown on KUB of June 18, 2020 is no longer identified. No ureteral ca lculi are identified. Bowel gas pattern is normal. IMPRESSION: 1. Nonvisualization of the suspected distal right ureteral calculus shown on KUB of June 18, 2020. N o ureteral calculi identified. 2. Right ureteral stent in place. 3. Left-sided nephrolithiasis. ACT 112: Negative or not required by law. Electronically signed by: Jerry Michel M.D. 06/20/2020 8:53 AM
[2020-06-20] MEDS ORDERED: DOXYCYCLINE HYCLATE 100 MG CAP PO SCH (09:00)
--- NOTE | 2020-06-20 09:33 | Discharge Summary ---
Date of Service June 20, 2020 Admission HPI Per Admitting Provider 54 yo male with recent history of right sided ureteral stones with complicated UTI, urine culture grew out Enterococcus sensitive to PCN. He was treated in the hospital with ureteral stent on right and then followed up with lithotripsy as outpatient. He was discharged from [facility] on 06/01 and completed 12 more days of Amoxicillin, last day would have been 06/13/20. He was doing well until a few days ago when he started to notice feelings of malaise, poor appetite, tingling skin and some urinary symptoms of pain, distension, back pain. He has not had a true fever. Mild nausea but he has not thrown up. He had a normal BM yesterday, again his appetite has been poor. He presented to the ED this morning because he had concerns for recurrent UTI and he did not want the infection to go to his kidneys. WBC was 18k, Cr and electrolytes stable. KUB with right ureteral stent in good position, some stone fragments at ureteropelvic junction, no hydronephrosis on renal US. Given IV fluids and Zosyn in the ED, asked for admission. Urology consult obtained. Principal Diagnosis Complicated UTI following ureteral stent and lithotripsy Discharge Exam Constitutional WD/WN, vitals as above Eyes PERRL, conjunctivae normal, anicteric sclerae ENMT external ear and nose normal, oropharynx normal Neck trachea midline, no thyromegaly Respiratory normal respiratory effort, lungs clear to auscultation Cardiovascular RRR, no murmur, no edema Gastrointestinal (Abdomen) normal bowel sounds, soft, nontender, no hepatosplenomegaly Musculoskeletal no cyanosis or clubbing, extremities motor strength 5/5 Skin no rashes, warm and dry Neurologic patellar DTR's 2+ bilat, sensation intact and PERRL, EOMI, accommodation nl, no face palsy, no dysarthria Psychiatric A+Ox3, euthymic affect Lymphatic no cervical or axillary lymphadenopathy Discharge Data Allergies Allergy/AdvReac Type Severity Reaction Status Date / Time No Known Allergies Allergy Verified 06/18/20 06:04 Consultations 06/18/20 07:52 ED Decision to Admit Stat 06/18/20 08:41 Consult Urology Routine Ordered Studies 06/18/20 06:41 US renal/blad retro comp Stat Hospital Course (1) UTI (urinary tract infection): UA grossly abnormal, > 30 WBC WBC down to 8k from 18k at time of admission treated with Zosyn IV as prior urine culture with Enterococcus that was sensitive to PCN urine culture with Enterococcus and coag negative staph will discharge on Doxycycline and Augmentin for 10 more days total no growth on blood cultures hold on stent removal for now, will f/u with urology later next week they recommend 10-14 days total, including what he had here stay well nourished, well hydrated at home call if he has fever, worsening pain KUB today with no further stone fragments visualized (2) History of renal stent: defer to urology on management of this will follow up in office later next week (3) Acute right flank pain: no obvious evidence of pyelonephrtitis of note, he completed 14 days total treatment last time, completed Amoxicillin on 06/13/20 Total Time Total Time Spent Total Time Spent (In Minutes): 31 minutes Total Time Includes: Examination of the Patient, Discharge Planning, Medication Reconciliation and Communication With Other Providers (urology) Discharge Plan Discharge Items Patient Disposition: Home - Self-Care Reason For Visit: URINARY TRACT INFECTION Discharge Diagnosis: Urinary tract infection - Enterococcus and coag negative staphylococcus Condition on Discharge: Good Goals: complete course of antibiotics follow up with urology later next week for stent removal Activity: Resume your previous activity Driving/Machine Use: No limitations Weightbearing: Full weightbearing Non-emergency contact: Primary Care Provider Call non-emergency contact if: you have any medication questions, your symptoms worsen and you have a fever Follow-up/Referrals: Thai Butcher MD [Physician] - (later next week for stent removal) Nader Blue [Primary Care Provider] - (one week) Diet: Regular Addtl Attending Provider Instructions: Medications: - DOXYCYCLINE: take twice a day, start this evening, take for 10 days, this treats coag negative staph can cause some photosensitivity, avoid excessive time outside in the sun for next 10 days - AUGMENTIN: take twice a day, start this evening, take for 10 days, this treats Enterococcus Complicated UTI, status post right ureteral stent, lithotripsy responded well to IV fluids and IV Zosyn (antibiotic) vitals stable, no fever, normal WBC KUB x-ray today shows no stones in right ureter, no obvious stones in bladder, likely passed the remaining fragments stay well hydrated and well nourished follow up with urology, could be ready for stent removal by later next week Pending Studies at Discharge: No Stand-Alone Forms: My [facility] [employer], Smoking Cessation Medications and DC Order Prescriptions: New doxycycline hyclate 100 mg Capsule 100 mg PO BID 10 Days Qty: 20 RF: 0 amoxicillin-pot clavulanate [Augmentin] 875-125 mg Tablet 1 tab PO BIDM 10 Days Qty: 20 RF: 0 Continued tamsulosin 0.4 mg Capsule 0.4 mg PO QAM Qty: 30 RF: 0 phenazopyridine [Pyridium] 200 mg tablet 200 mg PO Q8H PRN (Reason: pain) Qty: 10 RF: 0 acetaminophen 325 mg Tablet 650 mg PO Q6H PRN (Reason: pain) Qty: 15 RF: 0 Discharge Orders: Discharge Order (Routine); Ordered 06/20/20 Ordered By: Serafin Arthur Admission Data Admit Date/Time: 06/18/20 07:56 Attending Provider: Serafin Arthur Admit Provider: Serafin Arthur Primary Care Provider: Nader Blue Other Providers: Serafin Arthur ; Thai Butcher Coding Level of Care Code D/C Day Management >30 mins Diagnoses UTI (urinary tract infection) N39.0 History of renal stent Acute right flank pain R10.9
--- NOTE | 2020-07-05 06:36 | Coding Query ---
CODING QUERY To promote full compliance with coding requirements relating to patient care, provider participation is requested in all cases of hospital coder uncertainty. Please assist us with the question(s) below: Coding Question(s): Per Discharge Summary, patient has "complicated UTI following ureteral stent and lithotripsy." Please clarify below: (x ) Complicated UTI due to Stent Insertion ( ) Complicated UTI due to ESWL ( ) Other Please Explain: Thank you Gaurang Marquez Principal Diagnosis: "that condition established after study, to be chiefly responsible for occasioning the admission of the patient to the hospital for care." Co-Existing Principal Diagnosis: "when two or more diagnoses equally meet the criteria for principal diagnosis as determined by the circumstances of admission, diagnostic work up, and/or therapy provided, and the Alphabetic Index, Tabular List, or another coding guideline does not provide sequencing direction, any one of the diagnoses may be sequenced first." "When the physician has documented what appears to be a current diagnosis in the body of the record, but has not included the diagnosis in the final diagnostic statement, the physician should be asked whether the diagnosis should be added." (Source Coding Clinic 2 QTR90. p3-4) CYNTHIA
== END 2020-06-20 10:03 | disposition home or self-care (01) | DRG 699 ==
LOC: ED 05:45 → 2N 07:56